=== PATIENT | male | born 1940 | race Two or more races ===

== ENCOUNTER 2017-04-05 10:49 | Inpatient (IN) | payer OTHER, MEDICAID ==
[~2017-04-05] VITALS: Ht 172.7 cm; Wt 74.8 kg
[~2017-04-05 10:49] MED LIST: ANTIVERT25 MG ORAL; FERROUS SULFAT325 MG ORAL; PLAVIX75 MG ORAL; PRILOSEC OTC20 MG ORAL; SIMVASTATIN20 MG ORAL
[2017-04-05] MEDS ORDERED: Tubing IV Cassette IV ONE (11:28)
[2017-04-05 11:30] VITALS: BP 122/65
[2017-04-05] MEDS ORDERED: SINEMET 25-1001 EAC1 ORAL (11:40)
[2017-04-05] MEDS ORDERED: METOPROLOL TART25 MG ORAL (11:40)
[2017-04-05 11:42] LABS: EOSINOPHILS % (AUTO) 10.9 % (0.0-3.0); LYMPHOCYTES % (AUTO) 14.1 % (20.0-45.0); MEAN CORPUSCULAR HEMOGLOBIN 33.3 PG (27.0-31.0); MEAN CORPUSCULAR HGB CONC 33.3 G/DL (32.0-36.0); MEAN CORPUSCULAR VOLUME 100 FL (80-99); MEAN PLATELET VOLUME 6.5 FL (6.5-10.1); NEUTROPHILS % (AUTO) 68.1 % (45.0-75.0); PLATELET COUNT 305 K/UL (150-450); RED BLOOD COUNT 3.47 M/UL (4.70-6.10); RED CELL DISTRIBUTION WIDTH 12.9 % (11.6-14.8); WHITE BLOOD COUNT 9.2 K/UL (4.8-10.8)
[2017-04-05 12:01] LABS: ALANINE AMINOTRANSFERASE 5 U/L (3-41); ALBUMIN/GLOBULIN RATIO 1.7 (1.0-2.7); ANION GAP 12 (5-15); ASPARTATE AMINO TRANSFERASE 24 U/L (5-40); CALCIUM 9.3 mg/dL (8.6-10.2); CARBON DIOXIDE 27 mEQ/L (20-30); CHLORIDE 100 mEQ/L (98-107); CREATININE 0.7 mg/dL (0.7-1.2); HEMOLYSIS 4; LIPASE 34 U/L (< 60); POTASSIUM 4.2 mEQ/L (3.4-4.9); SODIUM 139 mEQ/L (135-145); TOTAL PROTEIN 6.4 g/dL (6.6-8.7); TROPONIN I < 0.30 ng/mL (<=0.30)
[2017-04-05 13:06] LABS: APPEARANCE,URINE CLEAR; KETONES,URINE NEGATIVE (NEGATIVE); LEUKOCYTE ESTERASE ,URINE 1+ (NEGATIVE); NITRITE,URINE NEGATIVE (NEGATIVE); PH,URINE 6.5 (4.5-8.0); PROTEIN,URINE NEGATIVE (NEGATIVE); UROBILINOGEN,URINE NORMAL MG/DL (0.0-1.0)
[2017-04-05 13:07] LABS: BACTERIA,URINE OCCASIONAL /HPF; SQUAMOUS EPITHELIAL CELL,UR OCCASIONAL /LPF (NONE/OCC); WBC,URINE 0-2 /HPF (0 - 0)
--- NOTE | 2017-04-05 13:42 | Emergency Room Report ---
History of Present Illness General Chief Complaint: Pelvic Pain Source: Patient Present Illness HPI Patient is a 77-year-old male who is brought in by his neighbor after having increased pelvic pain. Patient had some fall. The patient been having increased difficulty with ambulation. Patient prior history of low back surgery. Patient had gradual onset of symptoms. He reported having increased difficulty with ambulation. Patient denied any fever. He had previously been able to move his left leg due to back issues. Allergies: Coded Allergies: No Known Allergies (Unverified , 07/18/16) Patient History Past Medical History: see triage record Reviewed Nursing Documentation: PMH: Agreed, PSxH: Agreed Nursing Documentation-PMH Hx Cardiac Problems: Yes Hx Hypertension: Yes Hx Asthma: Yes Hx COPD: Yes Hx Cancer: No Hx Gastrointestinal Problems: No Hx Neurological Problems: Yes - Parkinson's (?) Review of Systems All Other Systems: negative except mentioned in HPI Physical Exam Vital Signs Date Time Temp Pulse Resp B/P Pulse Ox O2 Delivery O2 Flow Rate FiO2 04/05/17 10:55 97.9 78 20 128/70 96 Room Air Sp02 EP Interpretation: reviewed, normal General Appearance: normal inspection, well appearing, no apparent distress, alert, GCS 15, non-toxic Head: atraumatic ENT: normal ENT inspection, hearing grossly normal, normal voice Neck: normal inspection, full range of motion, supple, no bony tend Respiratory: normal inspection, lungs clear, normal breath sounds, no respiratory distress, no retraction, no wheezing Cardiovascular #1: regular rate, rhythm, no edema Gastrointestinal: normal inspection, normal bowel sounds, non tender, soft, no guarding, no hernia Genitourinary: no CVA tenderness Musculoskeletal: back normal, normal range of motion, decreased range of motion Neurologic: normal inspection, alert, responsive, speech normal Psychiatric: normal inspection, judgement/insight normal, mood/affect normal Skin: normal inspection, normal color, no rash Medical Decision Making Diagnostic Impression: Primary Impression: Diverticulitis Additional Impression: Gallstones ER Course The patient presented for pelvic pain. Differential diagnoses included wasn't limited to pelvic fracture, arthritis, dislocation, diverticulitis, urinary retention among others.Because of complexity of patient's case laboratory testing and imaging studies were ordered. CT imaging of the abdomen pelvis read by radiology showed multiple left colonic diverticula with a short segment of the descending sigmoid junction with apparent mild neural thickening which may be mild diverticulitis the patient is also noted to have some gallstones and bilateral renal cysts . The patient noted have tenderness to his lower abdomen. The patient said CT findings are consistent with diverticulitis. Dr. Kaylyn Ly was contacted for inpatient management. The patient does not appear to have a surgical abdomen at this time. Labs Test 04/05/17 11:20 04/05/17 12:30 White Blood Count 9.2 K/UL (4.8-10.8) Red Blood Count 3.47 M/UL (4.70-6.10) Hemoglobin 11.6 G/DL (14.2-18.0) Hematocrit 34.7 % (42.0-52.0) Mean Corpuscular Volume 100 FL (80-99) Mean Corpuscular Hemoglobin 33.3 PG (27.0-31.0) Mean Corpuscular Hemoglobin Concent 33.3 G/DL (32.0-36.0) Red Cell Distribution Width 12.9 % (11.6-14.8) Platelet Count 305 K/UL (150-450) Mean Platelet Volume 6.5 FL (6.5-10.1) Neutrophils (%) (Auto) 68.1 % (45.0-75.0) Lymphocytes (%) (Auto) 14.1 % (20.0-45.0) Monocytes (%) (Auto) 6.0 % (1.0-10.0) Eosinophils (%) (Auto) 10.9 % (0.0-3.0) Basophils (%) (Auto) 1.0 % (0.0-2.0) Sodium Level 139 mEQ/L (135-145) Potassium Level 4.2 mEQ/L (3.4-4.9) Chloride Level 100 mEQ/L (98-107) Carbon Dioxide Level 27 mEQ/L (20-30) Anion Gap 12 (5-15) Blood Urea Nitrogen 16 mg/dL (7-23) Creatinine 0.7 mg/dL (0.7-1.2) Estimat Glomerular Filtration Rate mL/min (>60) Glucose Level 99 mg/dL (74-106) Calcium Level 9.3 mg/dL (8.6-10.2) Total Bilirubin 0.9 mg/dL (0.0-1.2) Aspartate Amino Transf (AST/SGOT) 24 U/L (5-40) Alanine Aminotransferase (ALT/SGPT) 5 U/L (3-41) Alkaline Phosphatase 83 U/L (40-129) Troponin I < 0.30 ng/mL (<=0.30) Total Protein 6.4 g/dL (6.6-8.7) Albumin 4.1 g/dL (3.5-5.2) Globulin 2.3 g/dL Albumin/Globulin Ratio 1.7 (1.0-2.7) Lipase 34 U/L (< 60) Urine Color Pale yellow Urine Appearance Clear Urine pH 6.5 (4.5-8.0) Urine Specific [place] 1.010 (1.005-1.035) Urine Protein Negative (NEGATIVE) Urine Glucose (UA) Negative (NEGATIVE) Urine Ketones Negative (NEGATIVE) Urine Occult Blood 2+ (NEGATIVE) Urine Nitrite Negative (NEGATIVE) Urine Bilirubin Negative (NEGATIVE) Urine Urobilinogen Normal MG/DL (0.0-1.0) Urine Leukocyte Esterase 1+ (NEGATIVE) Urine RBC 2-4 /HPF (0 - 0) Urine WBC 0-2 /HPF (0 - 0) Urine Squamous Epithelial Cells Occasional /LPF Urine Bacteria Occasional /HPF (NONE) Last Vital Signs Date Time Temp Pulse Resp B/P Pulse Ox O2 Delivery O2 Flow Rate FiO2 04/05/17 11:30 73 16 122/65 97 Room Air 04/05/17 10:55 97.9 Status: unchanged Disposition: ADMITTED INPATIENT Condition: Serious Referrals: NON PHYSICIAN (PCP) Satya Coleman April 05, 2017 13:42
[2017-04-05 14:00] VITALS: BP 116/71
[2017-04-05] MEDS ORDERED: Ampicillin/Sulbactam Sod 3 GM in NS 110 ML IVPB ONE (14:00)
[2017-04-05] MEDS ORDERED: Unasyn 3gm Inj ONE (14:15)
[2017-04-05] MEDS ORDERED: Tubing IV Secondary IV ONE (14:15)
[2017-04-05] MEDS ORDERED: NS 110 ML ONE (14:15)
[2017-04-05 16:00] VITALS: BP 110/58
[2017-04-05] MEDS ORDERED: Acetaminophen 500mg (ES) tab ORAL PRN (18:15)
--- NOTE | 2017-04-05 20:48 | Infectious Diseases Prog Note ---
Assessment/Plan Problems: (1) Diverticulitis Assessment & Plan: confirmed on CT bad[place], will start levaquin and flagyl empirically, recommend GI consult for further evaluation.will send stool for C diff (2) Pelvic pain Assessment & Plan: due to the above , continue pain management as per primary Subjective Allergies: Coded Allergies: No Known Allergies (Unverified , 07/18/16) Objective Vital Signs Last 24 Hour Vital Signs Date Time Temp Pulse Resp B/P Pulse Ox O2 Delivery O2 Flow Rate FiO2 04/05/17 16:00 96.7 61 17 110/58 97 Room Air 04/05/17 15:43 97.9 66 16 116/71 97 Room Air 04/05/17 14:00 66 16 116/71 97 Room Air 04/05/17 11:30 73 16 122/65 97 Room Air 04/05/17 10:55 97.9 78 20 128/70 96 Room Air Height (Feet): 5 Height (Inches): 8.00 Weight (Pounds): 165 Laboratory Tests Test 04/05/17 11:20 04/05/17 12:30 White Blood Count 9.2 K/UL (4.8-10.8) Red Blood Count 3.47 M/UL (4.70-6.10) L Hemoglobin 11.6 G/DL (14.2-18.0) L Hematocrit 34.7 % (42.0-52.0) L Mean Corpuscular Volume 100 FL (80-99) H Mean Corpuscular Hemoglobin 33.3 PG (27.0-31.0) H Mean Corpuscular Hemoglobin Concent 33.3 G/DL (32.0-36.0) Red Cell Distribution Width 12.9 % (11.6-14.8) Platelet Count 305 K/UL (150-450) Mean Platelet Volume 6.5 FL (6.5-10.1) Neutrophils (%) (Auto) 68.1 % (45.0-75.0) Lymphocytes (%) (Auto) 14.1 % (20.0-45.0) L Monocytes (%) (Auto) 6.0 % (1.0-10.0) Eosinophils (%) (Auto) 10.9 % (0.0-3.0) H Basophils (%) (Auto) 1.0 % (0.0-2.0) Sodium Level 139 mEQ/L (135-145) Potassium Level 4.2 mEQ/L (3.4-4.9) Chloride Level 100 mEQ/L (98-107) Carbon Dioxide Level 27 mEQ/L (20-30) Anion Gap 12 (5-15) Blood Urea Nitrogen 16 mg/dL (7-23) Creatinine 0.7 mg/dL (0.7-1.2) Estimat Glomerular Filtration Rate mL/min (>60) Glucose Level 99 mg/dL (74-106) Calcium Level 9.3 mg/dL (8.6-10.2) Total Bilirubin 0.9 mg/dL (0.0-1.2) Aspartate Amino Transf (AST/SGOT) 24 U/L (5-40) Alanine Aminotransferase (ALT/SGPT) 5 U/L (3-41) Alkaline Phosphatase 83 U/L (40-129) Troponin I < 0.30 ng/mL (<=0.30) Total Protein 6.4 g/dL (6.6-8.7) L Albumin 4.1 g/dL (3.5-5.2) Globulin 2.3 g/dL Albumin/Globulin Ratio 1.7 (1.0-2.7) Lipase 34 U/L (< 60) Urine Color Pale yellow Urine Appearance Clear Urine pH 6.5 (4.5-8.0) Urine Specific [place] 1.010 (1.005-1.035) Urine Protein Negative (NEGATIVE) Urine Glucose (UA) Negative (NEGATIVE) Urine Ketones Negative (NEGATIVE) Urine Occult Blood 2+ (NEGATIVE) H Urine Nitrite Negative (NEGATIVE) Urine Bilirubin Negative (NEGATIVE) Urine Urobilinogen Normal MG/DL (0.0-1.0) Urine Leukocyte Esterase 1+ (NEGATIVE) H Urine RBC 2-4 /HPF (0 - 0) H Urine WBC 0-2 /HPF (0 - 0) Urine Squamous Epithelial Cells Occasional /LPF Urine Bacteria Occasional /HPF (NONE) Current Medications Medications (Trade) Dose Ordered Sig/Esther Route PRN Reason Start Time Stop Time Status Last Admin Dose Admin Acetaminophen (Tylenol) 500 mg Q4H PRN ORAL Fever/Headache/Mild Pain 04/05/17 18:15 05/05/17 18:14 Sodium Chloride (Sodium Chloride 1000ml bag) 1,000 ml @ 100 mls/hr Q10H ONCE IV 04/05/17 11:15 04/05/17 21:14 04/05/17 12:14 Ana Ann M.D. April 05, 2017 20:48
[2017-04-05 21:14] VITALS: BP 114/63
[2017-04-05] MEDS: metroNIDAZOLE 500mg 100 ML IVPB SCH (21:49)
[2017-04-06] MEDS: metroNIDAZOLE 500mg 100 ML IVPB SCH ×3 (05:29→22:06)
[2017-04-06 08:00] VITALS: BP 116/59
--- NOTE | 2017-04-06 08:27 | Diagnostic Imaging Report ---
Clinical Indication: Lower abdominal pain Technique: No oral contrast utilized, per emergency room physician request IV administration nonionic contrast. Venous phase spiral acquisition obtained through the abdomen and pelvis. Multiplanar reconstructions were generated. Total dose length product 765 mGycm. CTDIvol(s) 13 mGy. Dose reduction achieved using automated exposure control Comparison: None Findings: There are numerous colonic diverticula. There is equivocal minimal mural thickening at the junction of the distal descending and sigmoid colon with equivocal minimal pericolonic fat stranding. No evidence of diverticulitis otherwise. The appendix is normal. No small bowel distention. No free or loculated intraperitoneal air or fluid is evident. Distal esophagus, stomach, duodenum are unremarkable. Gallbladder contains small gallstones. The liver demonstrates a few subcentimeter low-attenuation lesions which are too small to characterize. No biliary ductal dilatation. The pancreas is unremarkable. The spleen contains a subcentimeter low-attenuation lesion which is too small to characterize. The adrenals are unremarkable. The kidneys demonstrate multiple cysts bilaterally, as well as multiple subcentimeter low-attenuation lesions which are too small to characterize. No retroperitoneal or mesenteric mass or adenopathy. No pelvic mass or adenopathy. There is evidence of prior prostatectomy. There is evidence of lumbar spinal fusion surgery. There is mild lumbar scoliotic deformity and fairly extensive or upper lumbar degenerative changes. There is incompletely descended right testicle. A calcified granuloma is seen in the inferior left upper lobe of the lungs Impression: Diverticulosis. Doubt but cannot completely exclude early diverticulitis at the junction of the distal descending and the proximal sigmoid colon. No acute process otherwise Cholelithiasis Postsurgical changes, as described, including prior prostatectomy, lumbar spine fusion surgery. Multiple bilateral renal cysts. Multiple bilateral subcentimeter low-attenuation renal lesions which are too small to characterize, most likely benign simple cysts. No further followup necessary Low-attenuation liver lesions which are too small to characterize, most likely benign simple cysts or bile hamartomas. No further followup necessary Old granulomatous disease at the left lung base Incompletely descended right testicle This agrees with the preliminary interpretation provided overnight by Dr. Saez The CT scanner at [facility] is accredited by the [employer] and the scans are performed using protocols designed to limit radiation exposure to as low as reasonably achievable to attain images of sufficient resolution adequate for diagnostic evaluation.
[2017-04-06 12:00] VITALS: BP 111/58
--- NOTE | 2017-04-06 13:04 | GI Initial Consult Note ---
Natalie Meza N.P. 04/06/17 1304: History of Present Illness General Date patient seen: April 06, 2017 Time patient seen: 11:00 Reason for Hospitalization: Pelvic Pain Referring physician: LIVE PARIKH Reason for Consultation: DIVERTICULITIS Present Illness HPI Patient is a 77-year-old male who is brought in by his neighbor after having increased pelvic pain. Patient had some fall. The patient been having increased difficulty with ambulation. Patient prior history of low back surgery. Patient had gradual onset of symptoms. He reported having increased difficulty with ambulation. Patient denied any fever. He had previously been able to move his left leg due to back issues. GI CONSULT: HPI as noted. GI consulted for diverticulitis via APCT. NILE armenta, TRISTA. Pt seen on floor, awake & alert with sitter by bedside. Currently on CLD, c/o of mild lower abdominal pain at this time. He presents today with anemia and diverticulitis. Unknown history of endoscopic procedures. Procedure: CT Abdomen Pelvis w/Contrast Clinical Indication: Lower abdominal pain Impression: Diverticulosis. Doubt but cannot completely exclude early diverticulitis at the junction of the distal descending and the proximal sigmoid colon. No acute process otherwise Cholelithiasis Postsurgical changes, as described, including prior prostatectomy, lumbar spine fusion surgery. Multiple bilateral renal cysts. Multiple bilateral subcentimeter low-attenuation renal lesions which are too small to characterize, most likely benign simple cysts. No further followup necessary Low-attenuation liver lesions which are too small to characterize, most likely benign simple cysts or bile hamartomas. No further followup necessary Old granulomatous disease at the left lung base Incompletely descended right testicle Home Meds Active Scripts Meclizine Hcl* (ANTIVERT*) 25 Mg Tablet, 50 MG ORAL TID, #30 TAB Prov:Brenton Coker MD 07/19/16 Reported Medications Carbidopa/Levodopa 25-100 Mg* (SINEMET 25-100 MG TABLET*) 1 Each Tablet, 1 TAB ORAL DAILY, TAB 04/05/17 Metoprolol Tartrate* (METOPROLOL TARTRATE*) 25 Mg Tablet, 25 MG ORAL EVERY 12 HOURS, TAB 04/05/17 Simvastatin (ZOCOR) 20 Mg Tablet, ORAL BEDTIME, TAB 07/18/16 Omeprazole Magnesium (PRILOSEC OTC) 20 Mg Tablet.dr, 20 MG ORAL DAILY, TAB 07/18/16 Clopidogrel Bisulfate* (PLAVIX*) 75 Mg Tablet, 75 MG ORAL DAILY, TAB 07/18/16 Ferrous Sulfate* (FERROUS SULFATE*) 325 Mg Tablet, ORAL DAILY, #30 TAB 0 Refills 07/18/16 Med list reviewed/reconciled: Yes Allergies: Coded Allergies: No Known Allergies (Unverified , 07/18/16) Patient History History Provided By: Medical Record PMH Narrative Hx Cardiac Problems: Yes Hx Hypertension: Yes Hx Asthma: Yes Hx COPD: Yes Hx Cancer: No Hx Gastrointestinal Problems: No Hx Neurological Problems: Yes - Parkinson's (?) Review of Systems All Other Systems: negative except mentioned in HPI Physical Exam Vital Signs Date Time Temp Pulse Resp B/P Pulse Ox O2 Delivery O2 Flow Rate FiO2 04/05/17 10:55 97.9 78 20 128/70 96 Room Air Sp02 EP Interpretation: reviewed General Appearance: well appearing, no apparent distress, alert Head: normocephalic EENT: normal ENT inspection Neck: supple Respiratory: normal breath sounds, no respiratory distress Cardiovascular: normal rate Gastrointestinal: normal inspection, non tender, soft Rectal: deferred Neurologic: normal inspection, alert, responsive Psychiatric: normal inspection Skin: normal inspection, normal color, no rash, warm/dry Lymphatic: normal inspection, no adenopathy Current Medications Current Medications Medications (Trade) Dose Ordered Sig/Esther Route PRN Reason Start Time Stop Time Status Last Admin Dose Admin Acetaminophen 500 mg 500 mg Q4H PRN ORAL Fever/Headache/Mild Pain 04/05/17 18:15 05/05/17 18:14 04/05/17 21:49 Levofloxacin 100 ml @ 100 mls/hr Q24H IVPB 04/05/17 23:00 04/12/17 22:59 04/05/17 22:13 Metronidazole (Flagyl) 100 ml @ 100 mls/hr Q8HR IVPB 04/05/17 22:00 04/12/17 21:59 04/06/17 05:29 GI: Plan Problems: (1) Anemia (2) Diverticulitis (3) Pelvic pain Plan APCT reviewed >> Diverticulosis. Doubt but cannot completely exclude early diverticulitis at the junction of the distal descending and the proximal sigmoid colon. abx IV -> PO IVFs CLD, adv to soft low fiber diet as tolerated pain mgmt fu labs ST eval recommend outpatient colonoscopy x 2 months after discharge date. Discussed with Dr. Garner. Thank you for referring this patient, we will follow. MIROSLAVA GARNER 04/07/17 1151: History of Present Illness General Reason for Hospitalization: Pelvic Pain Present Illness Home Meds Active Scripts Meclizine Hcl* (ANTIVERT*) 25 Mg Tablet, 50 MG ORAL TID, #30 TAB Prov:Brenton Coker MD 07/19/16 Reported Medications Carbidopa/Levodopa 25-100 Mg* (SINEMET 25-100 MG TABLET*) 1 Each Tablet, 1 TAB ORAL DAILY, TAB 04/05/17 Metoprolol Tartrate* (METOPROLOL TARTRATE*) 25 Mg Tablet, 25 MG ORAL EVERY 12 HOURS, TAB 04/05/17 Simvastatin (ZOCOR) 20 Mg Tablet, ORAL BEDTIME, TAB 07/18/16 Omeprazole Magnesium (PRILOSEC OTC) 20 Mg Tablet.dr, 20 MG ORAL DAILY, TAB 07/18/16 Clopidogrel Bisulfate* (PLAVIX*) 75 Mg Tablet, 75 MG ORAL DAILY, TAB 07/18/16 Ferrous Sulfate* (FERROUS SULFATE*) 325 Mg Tablet, ORAL DAILY, #30 TAB 0 Refills 07/18/16 Allergies: Coded Allergies: No Known Allergies (Unverified , 07/18/16) GI: Plan Plan The patient was seen and examined at bedside and all new and available data was reviewed in the patients chart. I agree with the above findings, impression and plan. (Patient seen earlier today. Signature stamp does not reflect patient encounter time.). -Maricarmen Mclean MDh Arden N.PAnny April 06, 2017 13:04 MIROSLAVA GARNER April 07, 2017 11:51
--- NOTE | 2017-04-06 13:58 | Diagnostic Imaging Report ---
APPROVED REPORT CPT Code: 56988 Present Symptoms Comments: Pain RIGHT LEG: Venous imaging reveals a patent deep venous system. There is no evidence of thrombus within the femoral, popliteal or tibial segments. The greater saphenous vein is also within normal limits. Doppler indicates normal spontaneous flow within these segments. LEFTLEG: Venous imaging reveals recanalized chronic thrombus in the superficial femoral vein. Large collateral vein noted anterior to the superficial femoral artery. The remainder of the deep venous system is within normal limits. There is no evidence of thrombus in the common femoral, popliteal or calf veins. The greater saphenous vein is also within normal limits. Doppler indicates normal spontaneous flow within these segments. There is no evidence of acute deep vein thrombosis.
[2017-04-06 16:00] VITALS: BP 106/54
[2017-04-06] MEDS ORDERED: NS 550ML IV ONE (17:56)
[2017-04-06] MEDS ORDERED: NS 275ml ONE (17:56)
[2017-04-06] MEDS ORDERED: Tubing IV Blood Pump IV ONE (17:56)
[2017-04-06] MEDS ORDERED: Tubing IV Secondary IV ONE (17:56)
--- NOTE | 2017-04-06 18:16 | Consultation ---
DATE OF CONSULTATION: INFECTIOUS DISEASE CONSULTATION REQUESTING PHYSICIAN: Kaylyn Watt M.D. REASON FOR CONSULTATION: Acute diverticulitis, recommendation for antibiotics therapy. HISTORY OF PRESENT ILLNESS: The patient is a 77-year-old male with past medical history of Parkinson disease, COPD, hypertension, and cardiac disease, was brought in to [facility] [place] by his neighbor for progressive abdominal pain, mainly localized in the lower aspect of his abdomen, 9/10, on and off, has been increasing over the last two days, was not associated with any nausea or vomiting, but diarrhea. There was no blood in the stool. The pain is a dull, deep, ache. The patient not aware of anything makes it better or worse. The patient had a CT scan in the emergency room showed evidence of acute diverticulitis. He received intravenous antibiotics in the emergency room and I was consulted by the primary provider for antibiotics treatment and management. As of note, the patient is poor historian, cannot provide good history and history was mainly obtained from the medical record. PAST MEDICAL HISTORY: Significant for cardiac disease, hypertension, asthma, COPD and Parkinson disease. PAST SURGICAL HISTORY: He had low back surgery. MEDICATIONS: The patient received Unasyn in the emergency room. For the rest of his medications, please refer to MAR. SOCIAL HISTORY: The patient lives at home. No recent drugs, tobacco or alcohol. FAMILY HISTORY: Unable to obtain. LABORATORY AND DIAGNOSTIC DATA: White count of 9.2, hemoglobin of 11.6 and platelet count of 305,000. BUN of 16 and creatinine 0.7. AST of 24 and ALT of 5. Urinalysis showed +1 leukocyte esterase, WBC 0-2, and occasional bacteria. Imaging, CT scan of the abdomen and pelvis showed diverticulosis, cannot exclude an early diverticulitis at the junction of the distal descending and the proximal sigmoid colon. No acute process otherwise. PHYSICAL EXAMINATION: GENERAL: A elderly male, up in bed, awake, alert, and not in distress. VITAL SIGNS: Temperature 98.2 degrees, pulse 81, respirations 20, blood pressure 116/59, and pulse oximetry 96% on room air. HEENT: Normocephalic and atraumatic. Pupils are reactive to light. Pale sclera. Moist oral mucosa. No exudate. NECK: Supple. No lymphadenopathy. CARDIOVASCULAR: Regular rate and rhythm. No murmur. LUNGS: Clear bilaterally. No wheezing or rhonchi. ABDOMEN: Soft and mildly distended. Tender in the lower aspect. No rebound. No guarding. No organomegaly. EXTREMITIES: No edema or cyanosis. ASSESSMENT AND RECOMMENDATION: 1. Acute diverticulitis. We will start the patient empirically on Levaquin and Flagyl. We will send stool for Clostridium difficile. Recommend GI consultation for further evaluation and management. Unclear when he had a colonoscopy before if he had any. Other recommendations as per Gastrointestinal. 2. Abdominal pain and pelvic pain due to the above. Continue pain management as per the primary. Thank you. Ana Ann M.D. DR: JOSE JOB#: [id number] CC:
[2017-04-06 18:20] LABS: HEMOLYSIS 7; IRON 83 ug/dL (59-158); TOTAL IRON BINDING CAPACITY 294 ug/dL (250-400)
[2017-04-06 18:30] LABS: FERRITIN 51 ng/mL (10-230)
--- NOTE | 2017-04-06 18:32 | Consultation ---
Consult Note Consult Note DATE OF CONSULTATION: 04/06/17 HEMATOLOGY CONSULTATION REQUESTING PHYSICIAN: Kaylyn Watt M.D. REASON FOR CONSULTATION: Anemia, eosinophilia HISTORY OF PRESENT ILLNESS: The patient is a 77-year-old male with past medical history of Parkinson disease, COPD, hypertension, and cardiac disease, was brought in to [facility] by his neighbor for progressive abdominal pain, mainly localized in the lower aspect of his abdomen, 9/10, on and off, has been increasing over the last two days, was not associated with any nausea or vomiting, but diarrhea. There was no blood in the stool. The pain is a dull, deep, ache. The patient not aware of anything makes it better or worse. CT showed acute diverticulitis. He was noted to have eosinophilia of 11% as well as anemia that was a hgb in the 11 range and hematology consult requested PAST MEDICAL HISTORY: Significant for cardiac disease, hypertension, asthma, COPD and Parkinson disease. PAST SURGICAL HISTORY: He had low back surgery. Current Medications Medications (Trade) Dose Ordered Sig/Esther Route PRN Reason Start Time Stop Time Status Last Admin Dose Admin Acetaminophen 500 mg 500 mg Q4H PRN ORAL Fever/Headache/Mild Pain 04/05/17 18:15 05/05/17 18:14 04/05/17 21:49 Levofloxacin 100 ml @ 100 mls/hr Q24H IVPB 04/05/17 23:00 04/12/17 22:59 04/05/17 22:13 Metronidazole (Flagyl) 100 ml @ 100 mls/hr Q8HR IVPB 04/05/17 22:00 04/12/17 21:59 04/06/17 14:58 SOCIAL HISTORY: The patient lives at home. No recent drugs, tobacco or alcohol. FAMILY HISTORY: Unable to obtain. LABORATORY AND DIAGNOSTIC DATA: Laboratory Tests Test 04/06/17 17:50 White Blood Count Pending Red Blood Count Pending Hemoglobin Pending Hematocrit Pending Mean Corpuscular Volume Pending Mean Corpuscular Hemoglobin Pending Mean Corpuscular Hemoglobin Concent Pending Red Cell Distribution Width Pending Platelet Count Pending Mean Platelet Volume Pending Neutrophils (%) (Auto) Pending Lymphocytes (%) (Auto) Pending Monocytes (%) (Auto) Pending Eosinophils (%) (Auto) Pending Basophils (%) (Auto) Pending Reticulocyte Count Pending Fibrinogen Pending Iron Level Pending Unsaturated Iron Binding Pending Ferritin 51 ng/mL (10-230) Vitamin B12 Level Pending Folate Pending Imaging, CT scan of the abdomen and pelvis showed diverticulosis, cannot exclude an early diverticulitis at the junction of the distal descending and the proximal sigmoid colon. No acute process otherwise. PHYSICAL EXAMINATION: GENERAL: A elderly male, up in bed, awake, alert, and not in distress. VITAL SIGNS: reviewed and clinically stable NECK: Supple. No lymphadenopathy. CARDIOVASCULAR: Regular rate and rhythm. No murmur. LUNGS: Clear bilaterally. No wheezing or rhonchi. ABDOMEN: Soft and mildly distended. Tender in the lower aspect. No rebound. No guarding. No organomegaly. EXTREMITIES: No edema or cyanosis. Labs: reviewed ASSESSMENT AND RECS: # Anemia secondary to chronic disease # Macrocytosis - potentially 2/2 medications # Eosinophilia is elevated at 11% rule out ova and parasites from gi source # Decreased h/h rule out gi bleed # Acute diverticulitis. on abx and consider gi eval with scope in approx 2 months as per GI recs # Abdominal pain and pelvic pain due to the above. Continue pain management as per the primary. # GREATLY Appreciate Consultation Yong Cortez April 06, 2017 18:32
[2017-04-06 18:36] LABS: BASOPHILS % (AUTO) 1.1 % (0.0-2.0); EOSINOPHILS % (AUTO) 10.7 % (0.0-3.0); LYMPHOCYTES % (AUTO) 15.1 % (20.0-45.0); MEAN CORPUSCULAR HEMOGLOBIN 35.3 PG (27.0-31.0); MEAN CORPUSCULAR HGB CONC 34.3 G/DL (32.0-36.0); MEAN CORPUSCULAR VOLUME 103 FL (80-99); MEAN PLATELET VOLUME 6.2 FL (6.5-10.1); MONOCYTES % (AUTO) 6.5 % (1.0-10.0); NEUTROPHILS % (AUTO) 66.7 % (45.0-75.0); PLATELET COUNT 278 K/UL (150-450); RED BLOOD COUNT 3.57 M/UL (4.70-6.10); WHITE BLOOD COUNT 6.7 K/UL (4.8-10.8)
[2017-04-06 19:41] LABS: BASOPHILS % (MANUAL) 1 % (0-2); EOSINOPHILS % (MANUAL) 10 % (0-3); LYMPHOCYTES % (MANUAL) 20 % (20-45); NEUTROPHILS % (MANUAL) 65 % (45-75); TOTAL CELLS COUNTED 100
[2017-04-06 19:42] LABS: BAND NEUTROPHILS % (MANUAL) 0 % (0-8); PLATELET ESTIMATE ADEQUATE; PLATELET MORPHOLOGY NORMAL
[2017-04-06 19:51] LABS: PATH BLOOD SMEAR/OMC SENT TO PATHOLOGIST
[2017-04-06 20:00] VITALS: BP 126/71
--- NOTE | 2017-04-06 20:30 | History and Physical Report ---
DATE OF ADMISSION: 04/05/2017 CHIEF COMPLAINT/HISTORY OF PRESENT ILLNESS: The patient is being admitted for abdominal pain that has been going on for a couple of days. Has history of back surgery. CT showed diverticula, multiple of them with mild diverticulitis as well. The patient has also had a prostate surgery in the past. The patient also had vomiting. Denies rectal bleeding. Denies constipation. Denies fever or chills. PAST MEDICAL HISTORY: Parkinson, iron deficiency anemia, history of vertigo, hypertension, GERD, hyperlipidemia, and BPH. PAST SURGICAL HISTORY: Prostate surgery, lung surgery, and back surgery. MEDICATIONS: Sinemet, Plavix, ferrous sulfate, metoprolol, omeprazole, and simvastatin. ALLERGIES: No known allergies. SOCIAL HISTORY: History of smoking. No history of drug or alcohol abuse. FAMILY HISTORY: Noncontributory. REVIEW OF SYSTEMS: HEENT: Denies headache. Respiratory: Denies shortness of breath. Denies cough. Cardiovascular: Denies chest pain. Denies palpitation. Gastrointestinal: Reports abdominal pain and vomiting. No rectal bleeding. Last bowel movement was yesterday. Extremities: He does have pain, which is chronic, mostly in the back. Central Nervous System: Denies change in vision or speech pattern. PHYSICAL EXAMINATION: VITAL SIGNS: Temperature is 97.9 degrees, pulse was 66, and blood pressure 116/71. HEENT: PERRLA. NECK: Supple. No lymphadenopathy. CHEST: Clear to auscultation. GASTROINTESTINAL: The patient has suprapubic tenderness. No rebound. No guarding. Positive bowel sounds. EXTREMITIES: No edema. Reflexes are equal on both sides. Moves all four extremities. NEUROLOGIC: Sensory is intact to light touch. LABORATORY AND DIAGNOSTIC DATA: WBC of 9.2, hemoglobin 7.6, and platelet of 305,000. Sodium 139, potassium 4.3, BUN of 16, creatinine 0.7 and glucose of 99. ASSESSMENT AND PLAN: 1. Diverticulitis. 2. Abdominal pain. I have consulted Dr. Hughes, Dr. Ann, and Dr. Willis for the treatment of the diverticulitis and abdominal pain and for the treatment of dehydration. Ali Hadadz, M.D. DR: FAM JOB#: [id number] CC:
[2017-04-07] VITALS: BP 113/55
[2017-04-07 04:00] VITALS: BP 116/68
[2017-04-07] MEDS: metroNIDAZOLE 500mg 100 ML IVPB SCH ×3 (06:02→22:58)
[2017-04-07 08:22] LABS: BASOPHILS % (AUTO) 1.2 % (0.0-2.0); EOSINOPHILS % (AUTO) 14.4 % (0.0-3.0); LYMPHOCYTES % (AUTO) 15.9 % (20.0-45.0); MEAN CORPUSCULAR HEMOGLOBIN 33.2 PG (27.0-31.0); MEAN CORPUSCULAR HGB CONC 33.3 G/DL (32.0-36.0); MEAN CORPUSCULAR VOLUME 100 FL (80-99); MEAN PLATELET VOLUME 6.7 FL (6.5-10.1); MONOCYTES % (AUTO) 7.2 % (1.0-10.0); NEUTROPHILS % (AUTO) 61.3 % (45.0-75.0); PLATELET COUNT 281 K/UL (150-450); RED BLOOD COUNT 3.51 M/UL (4.70-6.10); RED CELL DISTRIBUTION WIDTH 12.8 % (11.6-14.8)
[2017-04-07 08:40] LABS: ANION GAP 12 (5-15); CALCIUM 8.5 mg/dL (8.6-10.2); CARBON DIOXIDE 26 mEQ/L (20-30); CHLORIDE 104 mEQ/L (98-107); CREATININE 0.7 mg/dL (0.7-1.2); HEMOLYSIS 2; POTASSIUM 3.8 mEQ/L (3.4-4.9); SODIUM 142 mEQ/L (135-145)
[2017-04-07 08:45] VITALS: BP 125/58
[2017-04-07 11:45] VITALS: BP 106/59
--- NOTE | 2017-04-07 13:16 | General Progress Note ---
Assessment/Plan Problem List: (1) Diverticulitis ICD Codes: K57.92 - Diverticulitis of intestine, part unspecified, without perforation or abscess without bleeding SNOMED: 018472190 (2) Anemia ICD Codes: D64.9 - Anemia, unspecified SNOMED: 402566141 (3) Pelvic pain ICD Codes: R10.2 - Pelvic and perineal pain SNOMED: 45022757 Status: progressing Assessment/Plan afebrile vitals stable abdominal pain is improving reviewed chart and labs abx per id Subjective ROS Limited/Unobtainable: Yes Constitutional: Reports: no symptoms HEENT: Reports: no symptoms Allergies: Coded Allergies: No Known Allergies (Unverified , 07/18/16) Objective Last 24 Hour Vital Signs Date Time Temp Pulse Resp B/P Pulse Ox O2 Delivery O2 Flow Rate FiO2 04/07/17 11:45 98.2 74 20 106/59 95 Room Air 04/07/17 08:45 98.2 84 19 125/58 95 Room Air 04/07/17 04:00 98.1 80 18 116/68 93 Room Air 04/07/17 00:00 98.2 75 18 113/55 95 Room Air 04/06/17 20:00 97.5 82 18 126/71 97 Room Air 04/06/17 16:00 98.1 74 20 106/54 100 Room Air Intake and Output 04/06/17 04/07/17 19:00 07:00 Intake Total 960 ml 60 ml Output Total 600 ml Balance 960 ml -540 ml Intake Oral 960 ml 60 ml Output Urine Total 600 ml # Voids 2 1 # Bowel Movements 2 1 Laboratory Tests 04/06/17 17:50: White Blood Count 6.7, Red Blood Count 3.57L, Hemoglobin 12.6L, Hematocrit 36.7L , Mean Corpuscular Volume 103H, Mean Corpuscular Hemoglobin 35.3H, Mean Corpuscular Hemoglobin Concent 34.3, Red Cell Distribution Width 13.0, Platelet Count 278, Mean Platelet Volume 6.2L, Neutrophils (%) (Auto) 66.7, Lymphocytes ( %) (Auto) 15.1L, Monocytes (%) (Auto) 6.5, Eosinophils (%) (Auto) 10.7H, Basophils (%) (Auto) 1.1, Differential Total Cells Counted 100, Neutrophils % ( Manual) 65, Lymphocytes % (Manual) 20, Monocytes % (Manual) 4, Eosinophils % ( Manual) 10H, Basophils % (Manual) 1, Band Neutrophils 0, Platelet Estimate Adequate, Platelet Morphology Normal, Red Blood Cell Morphology Normal, Reticulocyte Count 1.4, Fibrinogen 357, Iron Level 83, Total Iron Binding Capacity 294, Percent Iron Saturation 28, Unsaturated Iron Binding 211, Ferritin 51, Vitamin B12 Level 696, Folate [Pending] 04/07/17 07:00: White Blood Count 6.0, Red Blood Count 3.51L, Hemoglobin 11.7L, Hematocrit 35.0L , Mean Corpuscular Volume 100H, Mean Corpuscular Hemoglobin 33.2H, Mean Corpuscular Hemoglobin Concent 33.3, Red Cell Distribution Width 12.8, Platelet Count 281, Mean Platelet Volume 6.7, Neutrophils (%) (Auto) 61.3, Lymphocytes (% ) (Auto) 15.9L, Monocytes (%) (Auto) 7.2, Eosinophils (%) (Auto) 14.4H, Basophils (%) (Auto) 1.2, Sodium Level 142, Potassium Level 3.8, Chloride Level 104, Carbon Dioxide Level 26, Anion Gap 12, Blood Urea Nitrogen 9, Creatinine 0.7, Estimat Glomerular Filtration Rate , Glucose Level 94, Calcium Level 8.5L Height (Feet): 5 Height (Inches): 8.00 Weight (Pounds): 165 EENT: PERRL/EOMI Neck: supple Cardiovascular: normal rate Respiratory/Chest: lungs clear Abdomen: soft Kaylyn Watt MD April 07, 2017 13:16
--- NOTE | 2017-04-07 13:26 | GI Progress Note ---
Assessment/Plan Problems: (1) Diverticulitis ICD Codes: K57.92 - Diverticulitis of intestine, part unspecified, without perforation or abscess without bleeding SNOMED: 098182331 (2) Pelvic pain ICD Codes: R10.2 - Pelvic and perineal pain SNOMED: 56364177 (3) Anemia ICD Codes: D64.9 - Anemia, unspecified SNOMED: 589321956 Status: stable, progressing Status Narrative Discussed with Dr. Willis. Assessment/Plan APCT reviewed >> Diverticulosis. Doubt but cannot completely exclude early diverticulitis at the junction of the distal descending and the proximal sigmoid colon. ST eval noted >> mech soft chopped with thickener. ok for DC per GI standpoint if tolerates lunch >> recommend outpatient colonoscopy x 2 months after discharge date. abx IV -> PO soft diet, tolerating pain mgmt fu labs Subjective Gastrointestinal/Abdominal: Reports: no symptoms Objective Last 24 Hour Vital Signs Date Time Temp Pulse Resp B/P Pulse Ox O2 Delivery O2 Flow Rate FiO2 04/07/17 11:45 98.2 74 20 106/59 95 Room Air 04/07/17 08:45 98.2 84 19 125/58 95 Room Air 04/07/17 04:00 98.1 80 18 116/68 93 Room Air 04/07/17 00:00 98.2 75 18 113/55 95 Room Air 04/06/17 20:00 97.5 82 18 126/71 97 Room Air 04/06/17 16:00 98.1 74 20 106/54 100 Room Air Intake and Output 04/06/17 04/07/17 19:00 07:00 Intake Total 960 ml 60 ml Output Total 600 ml Balance 960 ml -540 ml Intake Oral 960 ml 60 ml Output Urine Total 600 ml # Voids 2 1 # Bowel Movements 2 1 Laboratory Tests Test 04/06/17 17:50 04/07/17 07:00 White Blood Count 6.7 K/UL (4.8-10.8) 6.0 K/UL (4.8-10.8) Red Blood Count 3.57 M/UL (4.70-6.10) L 3.51 M/UL (4.70-6.10) L Hemoglobin 12.6 G/DL (14.2-18.0) L 11.7 G/DL (14.2-18.0) L Hematocrit 36.7 % (42.0-52.0) L 35.0 % (42.0-52.0) L Mean Corpuscular Volume 103 FL (80-99) H 100 FL (80-99) H Mean Corpuscular Hemoglobin 35.3 PG (27.0-31.0) H 33.2 PG (27.0-31.0) H Mean Corpuscular Hemoglobin Concent 34.3 G/DL (32.0-36.0) 33.3 G/DL (32.0-36.0) Red Cell Distribution Width 13.0 % (11.6-14.8) 12.8 % (11.6-14.8) Platelet Count 278 K/UL (150-450) 281 K/UL (150-450) Mean Platelet Volume 6.2 FL (6.5-10.1) L 6.7 FL (6.5-10.1) Neutrophils (%) (Auto) 66.7 % (45.0-75.0) 61.3 % (45.0-75.0) Lymphocytes (%) (Auto) 15.1 % (20.0-45.0) L 15.9 % (20.0-45.0) L Monocytes (%) (Auto) 6.5 % (1.0-10.0) 7.2 % (1.0-10.0) Eosinophils (%) (Auto) 10.7 % (0.0-3.0) H 14.4 % (0.0-3.0) H Basophils (%) (Auto) 1.1 % (0.0-2.0) 1.2 % (0.0-2.0) Differential Total Cells Counted 100 Neutrophils % (Manual) 65 % (45-75) Lymphocytes % (Manual) 20 % (20-45) Monocytes % (Manual) 4 % (1-10) Eosinophils % (Manual) 10 % (0-3) H Basophils % (Manual) 1 % (0-2) Band Neutrophils 0 % (0-8) Platelet Estimate Adequate Platelet Morphology Normal Red Blood Cell Morphology Normal Reticulocyte Count 1.4 % (0.0-2.0) Fibrinogen 357 mg/dL (200-400) Iron Level 83 ug/dL (59-158) Total Iron Binding Capacity 294 ug/dL (250-400) Percent Iron Saturation 28 % (15-50) Unsaturated Iron Binding 211 ug/dL (112-346) Ferritin 51 ng/mL (10-230) Vitamin B12 Level 696 pg/mL (211-946) Folate Pending Sodium Level 142 mEQ/L (135-145) Potassium Level 3.8 mEQ/L (3.4-4.9) Chloride Level 104 mEQ/L (98-107) Carbon Dioxide Level 26 mEQ/L (20-30) Anion Gap 12 (5-15) Blood Urea Nitrogen 9 mg/dL (7-23) Creatinine 0.7 mg/dL (0.7-1.2) Estimat Glomerular Filtration Rate mL/min (>60) Glucose Level 94 mg/dL (74-106) Calcium Level 8.5 mg/dL (8.6-10.2) L Height (Feet): 5 Height (Inches): 8.00 Weight (Pounds): 165 General Appearance: no apparent distress, alert Cardiovascular: normal rate Respiratory/Chest: normal breath sounds Abdominal Exam: normal bowel sounds, non tender Extremities: normal range of motion Natalie Meza N.P. April 07, 2017 13:26
--- NOTE | 2017-04-07 15:04 | Infectious Diseases Prog Note ---
Assessment/Plan Problems: (1) Diverticulitis Assessment & Plan: improving , on levaquin and flagyl empirically, follow up with GI for further evaluation. stool for C diff is pending (2) Pelvic pain Assessment & Plan: improving, due to the above , continue pain management as per primary Subjective Constitutional: Reports: no symptoms HEENT: Reports: no symptoms Respiratory: Reports: no symptoms Cardiovascular: Reports: no symptoms Gastrointestinal/Abdominal: Reports: diarrhea Genitourinary: Reports: no symptoms Neurologic: Reports: no symptoms Psychiatric: Reports: no symptoms Skin: Reports: no symptoms Allergies: Coded Allergies: No Known Allergies (Unverified , 07/18/16) Objective Vital Signs Last 24 Hour Vital Signs Date Time Temp Pulse Resp B/P Pulse Ox O2 Delivery O2 Flow Rate FiO2 04/07/17 11:45 98.2 74 20 106/59 95 Room Air 04/07/17 08:45 98.2 84 19 125/58 95 Room Air 04/07/17 04:00 98.1 80 18 116/68 93 Room Air 04/07/17 00:00 98.2 75 18 113/55 95 Room Air 04/06/17 20:00 97.5 82 18 126/71 97 Room Air 04/06/17 16:00 98.1 74 20 106/54 100 Room Air Height (Feet): 5 Height (Inches): 8.00 Weight (Pounds): 165 General Appearance: WD/WN, no acute distress HEENT: normocephalic, atraumatic, anicteric, mucous membranes moist Respiratory/Chest: chest wall non-tender, lungs clear, normal breath sounds, no respiratory distress, no accessory muscle use Cardiovascular: normal peripheral pulses, normal rate, regular rhythm, no gallop/murmur, no JVD Abdomen: normal bowel sounds, soft, non tender, no organomegaly, non distended , no mass Extremities: no cyanosis, no clubbing Skin: no rash, no lesions Laboratory Tests Test 04/06/17 17:50 04/07/17 07:00 White Blood Count 6.7 K/UL (4.8-10.8) 6.0 K/UL (4.8-10.8) Red Blood Count 3.57 M/UL (4.70-6.10) L 3.51 M/UL (4.70-6.10) L Hemoglobin 12.6 G/DL (14.2-18.0) L 11.7 G/DL (14.2-18.0) L Hematocrit 36.7 % (42.0-52.0) L 35.0 % (42.0-52.0) L Mean Corpuscular Volume 103 FL (80-99) H 100 FL (80-99) H Mean Corpuscular Hemoglobin 35.3 PG (27.0-31.0) H 33.2 PG (27.0-31.0) H Mean Corpuscular Hemoglobin Concent 34.3 G/DL (32.0-36.0) 33.3 G/DL (32.0-36.0) Red Cell Distribution Width 13.0 % (11.6-14.8) 12.8 % (11.6-14.8) Platelet Count 278 K/UL (150-450) 281 K/UL (150-450) Mean Platelet Volume 6.2 FL (6.5-10.1) L 6.7 FL (6.5-10.1) Neutrophils (%) (Auto) 66.7 % (45.0-75.0) 61.3 % (45.0-75.0) Lymphocytes (%) (Auto) 15.1 % (20.0-45.0) L 15.9 % (20.0-45.0) L Monocytes (%) (Auto) 6.5 % (1.0-10.0) 7.2 % (1.0-10.0) Eosinophils (%) (Auto) 10.7 % (0.0-3.0) H 14.4 % (0.0-3.0) H Basophils (%) (Auto) 1.1 % (0.0-2.0) 1.2 % (0.0-2.0) Differential Total Cells Counted 100 Neutrophils % (Manual) 65 % (45-75) Lymphocytes % (Manual) 20 % (20-45) Monocytes % (Manual) 4 % (1-10) Eosinophils % (Manual) 10 % (0-3) H Basophils % (Manual) 1 % (0-2) Band Neutrophils 0 % (0-8) Platelet Estimate Adequate Platelet Morphology Normal Red Blood Cell Morphology Normal Reticulocyte Count 1.4 % (0.0-2.0) Fibrinogen 357 mg/dL (200-400) Iron Level 83 ug/dL (59-158) Total Iron Binding Capacity 294 ug/dL (250-400) Percent Iron Saturation 28 % (15-50) Unsaturated Iron Binding 211 ug/dL (112-346) Ferritin 51 ng/mL (10-230) Vitamin B12 Level 696 pg/mL (211-946) Folate 18.9 ng/mL (>3.0) Sodium Level 142 mEQ/L (135-145) Potassium Level 3.8 mEQ/L (3.4-4.9) Chloride Level 104 mEQ/L (98-107) Carbon Dioxide Level 26 mEQ/L (20-30) Anion Gap 12 (5-15) Blood Urea Nitrogen 9 mg/dL (7-23) Creatinine 0.7 mg/dL (0.7-1.2) Estimat Glomerular Filtration Rate mL/min (>60) Glucose Level 94 mg/dL (74-106) Calcium Level 8.5 mg/dL (8.6-10.2) L Current Medications Medications (Trade) Dose Ordered Sig/Esther Route PRN Reason Start Time Stop Time Status Last Admin Dose Admin Acetaminophen 500 mg 500 mg Q4H PRN ORAL Fever/Headache/Mild Pain 04/05/17 18:15 05/05/17 18:14 04/05/17 21:49 Levofloxacin 100 ml @ 100 mls/hr Q24H IVPB 04/05/17 23:00 04/12/17 22:59 04/06/17 22:04 Metronidazole (Flagyl) 100 ml @ 100 mls/hr Q8HR IVPB 04/05/17 22:00 04/12/17 21:59 04/07/17 14:05 Ana Ann M.D. April 07, 2017 15:04
[2017-04-07 16:00] VITALS: BP 118/85
--- NOTE | 2017-04-07 16:49 | General Progress Note ---
Assessment/Plan Assessment/Plan ASSESSMENT AND RECS: # Anemia secondary to chronic disease, anemia workup reveals no evidence of clots # Macrocytosis - potentially 2/2 medications # Eosinophilia is elevated at 11% rule out ova and parasites from gi source, results are pending # Decreased h/h rule out gi bleed # Acute diverticulitis. on abx and consider gi eval with scope in approx 2 months as per GI recs # Abdominal pain and pelvic pain due to the above. Continue pain management as per the primary # GREATLY Appreciate Consultation Subjective Constitutional: Reports: no symptoms HEENT: Reports: no symptoms Cardiovascular: Reports: no symptoms Respiratory: Reports: no symptoms Gastrointestinal/Abdominal: Reports: no symptoms Genitourinary: Reports: no symptoms Neurologic/Psychiatric: Reports: no symptoms Endocrine: Reports: no symptoms Hematologic/Lymphatic: Reports: anemia Allergies: Coded Allergies: No Known Allergies (Unverified , 07/18/16) Subjective no events, no reports or hematochezia Objective Last 24 Hour Vital Signs Date Time Temp Pulse Resp B/P Pulse Ox O2 Delivery O2 Flow Rate FiO2 04/07/17 16:00 98.2 77 18 118/85 97 Room Air 04/07/17 11:45 98.2 74 20 106/59 95 Room Air 04/07/17 08:45 98.2 84 19 125/58 95 Room Air 04/07/17 04:00 98.1 80 18 116/68 93 Room Air 04/07/17 00:00 98.2 75 18 113/55 95 Room Air 04/06/17 20:00 97.5 82 18 126/71 97 Room Air Intake and Output 04/06/17 04/07/17 19:00 07:00 Intake Total 960 ml 60 ml Output Total 600 ml Balance 960 ml -540 ml Intake Oral 960 ml 60 ml Output Urine Total 600 ml # Voids 2 1 # Bowel Movements 2 1 Laboratory Tests 04/06/17 17:50: White Blood Count 6.7, Red Blood Count 3.57L, Hemoglobin 12.6L, Hematocrit 36.7L , Mean Corpuscular Volume 103H, Mean Corpuscular Hemoglobin 35.3H, Mean Corpuscular Hemoglobin Concent 34.3, Red Cell Distribution Width 13.0, Platelet Count 278, Mean Platelet Volume 6.2L, Neutrophils (%) (Auto) 66.7, Lymphocytes ( %) (Auto) 15.1L, Monocytes (%) (Auto) 6.5, Eosinophils (%) (Auto) 10.7H, Basophils (%) (Auto) 1.1, Differential Total Cells Counted 100, Neutrophils % ( Manual) 65, Lymphocytes % (Manual) 20, Monocytes % (Manual) 4, Eosinophils % ( Manual) 10H, Basophils % (Manual) 1, Band Neutrophils 0, Platelet Estimate Adequate, Platelet Morphology Normal, Red Blood Cell Morphology Normal, Reticulocyte Count 1.4, Fibrinogen 357, Iron Level 83, Total Iron Binding Capacity 294, Percent Iron Saturation 28, Unsaturated Iron Binding 211, Ferritin 51, Vitamin B12 Level 696, Folate 18.9 04/07/17 07:00: White Blood Count 6.0, Red Blood Count 3.51L, Hemoglobin 11.7L, Hematocrit 35.0L , Mean Corpuscular Volume 100H, Mean Corpuscular Hemoglobin 33.2H, Mean Corpuscular Hemoglobin Concent 33.3, Red Cell Distribution Width 12.8, Platelet Count 281, Mean Platelet Volume 6.7, Neutrophils (%) (Auto) 61.3, Lymphocytes (% ) (Auto) 15.9L, Monocytes (%) (Auto) 7.2, Eosinophils (%) (Auto) 14.4H, Basophils (%) (Auto) 1.2, Sodium Level 142, Potassium Level 3.8, Chloride Level 104, Carbon Dioxide Level 26, Anion Gap 12, Blood Urea Nitrogen 9, Creatinine 0.7, Estimat Glomerular Filtration Rate , Glucose Level 94, Calcium Level 8.5L Height (Feet): 5 Height (Inches): 8.00 Weight (Pounds): 165 General Appearance: no apparent distress EENT: TMs normal Neck: non-tender Cardiovascular: normal rate Respiratory/Chest: normal breath sounds Genitourinary/Rectal: heme negative stool Extremities: non-tender Edema: 1+ Leg (L), 1+ Leg (R) Edema: mild edema Neurologic: alert Skin: warm/dry Yong Cortez April 07, 2017 16:49
--- NOTE | 2017-04-07 19:53 | Cardiology Report ---
APPROVED REPORT EKG Measurement Heart [id number] Normal sinus rhythm Low voltage QRS Septal infarct, age undetermined Abnormal ECG
[2017-04-07 20:54] VITALS: BP 120/62
[2017-04-08 00:01] VITALS: BP 118/70
[2017-04-08] MEDS: metroNIDAZOLE 500mg 100 ML IVPB SCH ×2 (05:26→14:21)
[2017-04-08 07:06] LABS: BASOPHILS % (AUTO) 1.3 % (0.0-2.0); EOSINOPHILS % (AUTO) 12.7 % (0.0-3.0); LYMPHOCYTES % (AUTO) 15.9 % (20.0-45.0); MEAN CORPUSCULAR HEMOGLOBIN 33.3 PG (27.0-31.0); MEAN CORPUSCULAR HGB CONC 33.5 G/DL (32.0-36.0); MEAN CORPUSCULAR VOLUME 100 FL (80-99); MEAN PLATELET VOLUME 6.7 FL (6.5-10.1); MONOCYTES % (AUTO) 6.7 % (1.0-10.0); NEUTROPHILS % (AUTO) 63.5 % (45.0-75.0); PLATELET COUNT 290 K/UL (150-450); RED BLOOD COUNT 3.41 M/UL (4.70-6.10); RED CELL DISTRIBUTION WIDTH 12.5 % (11.6-14.8); WHITE BLOOD COUNT 6.7 K/UL (4.8-10.8)
[2017-04-08 07:23] LABS: ANION GAP 12 (5-15); CALCIUM 8.6 mg/dL (8.6-10.2); CARBON DIOXIDE 25 mEQ/L (20-30); CHLORIDE 103 mEQ/L (98-107); CREATININE 0.7 mg/dL (0.7-1.2); HEMOLYSIS 4; SODIUM 140 mEQ/L (135-145)
[2017-04-08 08:00] VITALS: BP 118/72
--- NOTE | 2017-04-08 11:20 | GI Progress Note ---
Assessment/Plan Problems: (1) Diverticulitis ICD Codes: K57.92 - Diverticulitis of intestine, part unspecified, without perforation or abscess without bleeding SNOMED: 216234740 (2) Pelvic pain ICD Codes: R10.2 - Pelvic and perineal pain SNOMED: 74252684 (3) Anemia ICD Codes: D64.9 - Anemia, unspecified SNOMED: 659910235 Status: stable Status Narrative Discussed with Dr. Willis. Assessment/Plan APCT reviewed >> Diverticulosis. Doubt but cannot completely exclude early diverticulitis at the junction of the distal descending and the proximal sigmoid colon. ST eval noted >> mech soft chopped with thickener. ok for DC per GI standpoint >> requires outpatient colonoscopy x 2 months after discharge date. abx IV -> PO soft diet, tolerating pain mgmt fu labs Subjective Gastrointestinal/Abdominal: Reports: no symptoms Objective Last 24 Hour Vital Signs Date Time Temp Pulse Resp B/P Pulse Ox O2 Delivery O2 Flow Rate FiO2 04/08/17 08:00 97.9 98 20 118/72 95 Room Air 04/08/17 00:01 97.5 73 18 118/70 97 Room Air 04/07/17 20:54 97.5 76 18 120/62 97 04/07/17 16:00 98.2 77 18 118/85 97 Room Air 04/07/17 11:45 98.2 74 20 106/59 95 Room Air Intake and Output 04/07/17 04/08/17 19:00 07:00 Intake Total 960 ml 236 ml Output Total 860 ml 500 ml Balance 100 ml -264 ml Intake Oral 960 ml 236 ml Output Urine Total 860 ml 500 ml # Voids 3 2 # Bowel Movements 2 Laboratory Tests Test 04/08/17 01:50 04/08/17 05:00 Stool Occult Blood Negative (NEGATIVE) White Blood Count 6.7 K/UL (4.8-10.8) Red Blood Count 3.41 M/UL (4.70-6.10) L Hemoglobin 11.4 G/DL (14.2-18.0) L Hematocrit 33.9 % (42.0-52.0) L Mean Corpuscular Volume 100 FL (80-99) H Mean Corpuscular Hemoglobin 33.3 PG (27.0-31.0) H Mean Corpuscular Hemoglobin Concent 33.5 G/DL (32.0-36.0) Red Cell Distribution Width 12.5 % (11.6-14.8) Platelet Count 290 K/UL (150-450) Mean Platelet Volume 6.7 FL (6.5-10.1) Neutrophils (%) (Auto) 63.5 % (45.0-75.0) Lymphocytes (%) (Auto) 15.9 % (20.0-45.0) L Monocytes (%) (Auto) 6.7 % (1.0-10.0) Eosinophils (%) (Auto) 12.7 % (0.0-3.0) H Basophils (%) (Auto) 1.3 % (0.0-2.0) Sodium Level 140 mEQ/L (135-145) Potassium Level 4.0 mEQ/L (3.4-4.9) Chloride Level 103 mEQ/L (98-107) Carbon Dioxide Level 25 mEQ/L (20-30) Anion Gap 12 (5-15) Blood Urea Nitrogen 9 mg/dL (7-23) Creatinine 0.7 mg/dL (0.7-1.2) Estimat Glomerular Filtration Rate mL/min (>60) Glucose Level 101 mg/dL (74-106) Calcium Level 8.6 mg/dL (8.6-10.2) Height (Feet): 5 Height (Inches): 8.00 Weight (Pounds): 165 General Appearance: no apparent distress, alert Cardiovascular: normal rate Respiratory/Chest: normal breath sounds, no respiratory distress Abdominal Exam: normal bowel sounds, non tender, soft Extremities: normal range of motion Natalie Meza N.P. April 08, 2017 11:20
--- NOTE | 2017-04-08 11:49 | General Progress Note ---
Assessment/Plan Problem List: (1) Diverticulitis ICD Codes: K57.92 - Diverticulitis of intestine, part unspecified, without perforation or abscess without bleeding SNOMED: 115524928 (2) Anemia ICD Codes: D64.9 - Anemia, unspecified SNOMED: 416324327 (3) Pelvic pain ICD Codes: R10.2 - Pelvic and perineal pain SNOMED: 85654477 Status: progressing Assessment/Plan clreared by gi and id to be dc so dc w f/u w gi of choice in one week Subjective ROS Limited/Unobtainable: Yes Constitutional: Reports: no symptoms Allergies: Coded Allergies: No Known Allergies (Unverified , 07/18/16) Objective Last 24 Hour Vital Signs Date Time Temp Pulse Resp B/P Pulse Ox O2 Delivery O2 Flow Rate FiO2 04/08/17 08:00 97.9 98 20 118/72 95 Room Air 04/08/17 00:01 97.5 73 18 118/70 97 Room Air 04/07/17 20:54 97.5 76 18 120/62 97 04/07/17 16:00 98.2 77 18 118/85 97 Room Air Intake and Output 04/07/17 04/08/17 19:00 07:00 Intake Total 960 ml 236 ml Output Total 860 ml 500 ml Balance 100 ml -264 ml Intake Oral 960 ml 236 ml Output Urine Total 860 ml 500 ml # Voids 3 2 # Bowel Movements 2 Laboratory Tests 04/08/17 01:50: Stool Occult Blood Negative 04/08/17 05:00: White Blood Count 6.7, Red Blood Count 3.41L, Hemoglobin 11.4L, Hematocrit 33.9L , Mean Corpuscular Volume 100H, Mean Corpuscular Hemoglobin 33.3H, Mean Corpuscular Hemoglobin Concent 33.5, Red Cell Distribution Width 12.5, Platelet Count 290, Mean Platelet Volume 6.7, Neutrophils (%) (Auto) 63.5, Lymphocytes (% ) (Auto) 15.9L, Monocytes (%) (Auto) 6.7, Eosinophils (%) (Auto) 12.7H, Basophils (%) (Auto) 1.3, Sodium Level 140, Potassium Level 4.0, Chloride Level 103, Carbon Dioxide Level 25, Anion Gap 12, Blood Urea Nitrogen 9, Creatinine 0.7, Estimat Glomerular Filtration Rate , Glucose Level 101, Calcium Level 8.6 Height (Feet): 5 Height (Inches): 8.00 Weight (Pounds): 165 Neck: supple Cardiovascular: normal rate Abdomen: non tender Kaylyn Watt MD April 08, 2017 11:49
[2017-04-08 12:00] VITALS: BP 131/67
[2017-04-08] MEDS ORDERED: LEVOFLOXACIN500 MG ORAL (15:03)
[2017-04-08] MEDS ORDERED: METRONIDAZOLE500 MG ORAL (15:04)
--- NOTE | 2017-04-08 16:01 | Infectious Diseases Prog Note ---
Assessment/Plan Problems: (1) Diverticulitis Assessment & Plan: improving , on levaquin and flagyl empirically, follow up with GI for further evaluation. will continue antibiotics for five more days (2) Pelvic pain Assessment & Plan: improving, due to the above , continue pain management as per primary Subjective Constitutional: Reports: no symptoms HEENT: Reports: no symptoms Respiratory: Reports: no symptoms Breasts: Reports: no symptoms Cardiovascular: Reports: no symptoms Gastrointestinal/Abdominal: Reports: no symptoms Genitourinary: Reports: no symptoms Neurologic: Reports: no symptoms Psychiatric: Reports: no symptoms Skin: Reports: no symptoms Allergies: Coded Allergies: No Known Allergies (Unverified , 07/18/16) Objective Vital Signs Last 24 Hour Vital Signs Date Time Temp Pulse Resp B/P Pulse Ox O2 Delivery O2 Flow Rate FiO2 04/08/17 12:00 98.1 84 20 131/67 95 Room Air 04/08/17 08:00 97.9 98 20 118/72 95 Room Air 04/08/17 00:01 97.5 73 18 118/70 97 Room Air 04/07/17 20:54 97.5 76 18 120/62 97 Height (Feet): 5 Height (Inches): 8.00 Weight (Pounds): 165 General Appearance: WD/WN, no acute distress HEENT: normocephalic, atraumatic, anicteric, mucous membranes moist Respiratory/Chest: chest wall non-tender, lungs clear, normal breath sounds, no respiratory distress, no accessory muscle use Cardiovascular: normal peripheral pulses, normal rate, regular rhythm, no gallop/murmur, no JVD Abdomen: normal bowel sounds, soft, non tender, no organomegaly, non distended , no mass Extremities: no cyanosis, no clubbing Skin: no rash, no lesions Laboratory Tests Test 04/08/17 01:50 04/08/17 05:00 Stool Occult Blood Negative (NEGATIVE) White Blood Count 6.7 K/UL (4.8-10.8) Red Blood Count 3.41 M/UL (4.70-6.10) L Hemoglobin 11.4 G/DL (14.2-18.0) L Hematocrit 33.9 % (42.0-52.0) L Mean Corpuscular Volume 100 FL (80-99) H Mean Corpuscular Hemoglobin 33.3 PG (27.0-31.0) H Mean Corpuscular Hemoglobin Concent 33.5 G/DL (32.0-36.0) Red Cell Distribution Width 12.5 % (11.6-14.8) Platelet Count 290 K/UL (150-450) Mean Platelet Volume 6.7 FL (6.5-10.1) Neutrophils (%) (Auto) 63.5 % (45.0-75.0) Lymphocytes (%) (Auto) 15.9 % (20.0-45.0) L Monocytes (%) (Auto) 6.7 % (1.0-10.0) Eosinophils (%) (Auto) 12.7 % (0.0-3.0) H Basophils (%) (Auto) 1.3 % (0.0-2.0) Sodium Level 140 mEQ/L (135-145) Potassium Level 4.0 mEQ/L (3.4-4.9) Chloride Level 103 mEQ/L (98-107) Carbon Dioxide Level 25 mEQ/L (20-30) Anion Gap 12 (5-15) Blood Urea Nitrogen 9 mg/dL (7-23) Creatinine 0.7 mg/dL (0.7-1.2) Estimat Glomerular Filtration Rate mL/min (>60) Glucose Level 101 mg/dL (74-106) Calcium Level 8.6 mg/dL (8.6-10.2) Current Medications Medications (Trade) Dose Ordered Sig/Esther Route PRN Reason Start Time Stop Time Status Last Admin Dose Admin Acetaminophen 500 mg 500 mg Q4H PRN ORAL Fever/Headache/Mild Pain 04/05/17 18:15 05/05/17 18:14 04/05/17 21:49 Levofloxacin 100 ml @ 100 mls/hr Q24H IVPB 04/05/17 23:00 04/12/17 22:59 04/07/17 23:52 Metronidazole (Flagyl) 100 ml @ 100 mls/hr Q8HR IVPB 04/05/17 22:00 04/12/17 21:59 04/08/17 14:21 Ana Ann M.D. April 08, 2017 16:01
--- NOTE | 2017-04-08 17:42 | General Progress Note ---
Assessment/Plan Assessment/Plan ASSESSMENT AND RECS: # Anemia secondary to chronic disease, anemia workup reveals no evidence of iron deficiency, stable for d/c # Macrocytosis - potentially 2/2 meds # Eosinophilia is elevated at 11% rule out ova and parasites from gi source, results are pending # Decreased h/h rule out gi bleed, colo in 2months # Acute diverticulitis. on abx and consider gi eval with scope in approx 2 months as per GI recs # Abdominal pain and pelvic pain due to the above. Continue pain management as per the primary # GREATLY Appreciate Consultation Subjective Constitutional: Reports: no symptoms HEENT: Reports: no symptoms Cardiovascular: Reports: no symptoms Respiratory: Reports: no symptoms Gastrointestinal/Abdominal: Reports: poor appetite Genitourinary: Reports: no symptoms Neurologic/Psychiatric: Reports: no symptoms Endocrine: Reports: no symptoms Hematologic/Lymphatic: Reports: anemia Allergies: Coded Allergies: No Known Allergies (Unverified , 07/18/16) Subjective no events, no reports or hematochezia overnight, stable for d/c Objective Last 24 Hour Vital Signs Date Time Temp Pulse Resp B/P Pulse Ox O2 Delivery O2 Flow Rate FiO2 04/08/17 12:00 98.1 84 20 131/67 95 Room Air 04/08/17 08:00 97.9 98 20 118/72 95 Room Air 04/08/17 00:01 97.5 73 18 118/70 97 Room Air 04/07/17 20:54 97.5 76 18 120/62 97 Intake and Output 04/07/17 04/08/17 19:00 07:00 Intake Total 960 ml 236 ml Output Total 860 ml 500 ml Balance 100 ml -264 ml Intake Oral 960 ml 236 ml Output Urine Total 860 ml 500 ml # Voids 3 2 # Bowel Movements 2 Laboratory Tests 04/08/17 01:50: Stool Occult Blood Negative 04/08/17 05:00: White Blood Count 6.7, Red Blood Count 3.41L, Hemoglobin 11.4L, Hematocrit 33.9L , Mean Corpuscular Volume 100H, Mean Corpuscular Hemoglobin 33.3H, Mean Corpuscular Hemoglobin Concent 33.5, Red Cell Distribution Width 12.5, Platelet Count 290, Mean Platelet Volume 6.7, Neutrophils (%) (Auto) 63.5, Lymphocytes (% ) (Auto) 15.9L, Monocytes (%) (Auto) 6.7, Eosinophils (%) (Auto) 12.7H, Basophils (%) (Auto) 1.3, Sodium Level 140, Potassium Level 4.0, Chloride Level 103, Carbon Dioxide Level 25, Anion Gap 12, Blood Urea Nitrogen 9, Creatinine 0.7, Estimat Glomerular Filtration Rate , Glucose Level 101, Calcium Level 8.6 Height (Feet): 5 Height (Inches): 8.00 Weight (Pounds): 165 General Appearance: no apparent distress EENT: TMs normal Neck: normal alignment Cardiovascular: normal rate Respiratory/Chest: lungs clear Abdomen: no organomegaly Extremities: non-tender Edema: 1+ Leg (L), 1+ Leg (R) Edema: mild edema Neurologic: alert Skin: normal pigmentation Yong Cortez April 08, 2017 17:42
--- NOTE | 2017-04-10 13:04 | Discharge Summary ---
Discharge Summary Hospital Course Date of Admission April 05, 2017 at 14:15 Date of Discharge April 08, 2017 at 17:00 Admitting Diagnosis diverticulitis HPI Albino Brown is a 77 year old male who was admitted on April 05, 2017 at 14:15 for Diverticulitis Hospital Course [id number] Discharge Discharge Disposition Patient was discharged to Home (01) Discharge Diagnoses: Isela aMrtinez NP April 10, 2017 13:04
== END 2017-04-08 17:00 | disposition home or self-care (01) | DRG 392 ==
LOC: EMR 11:25 → 3E 14:15 → OBSVTOIN 14:15 → INTOOBSV 14:15 → EDBEDREQ 14:46 → 3E 20:56
DX: K57.92 Diverticulitis of intestine, part unspecified, without perforation or abscess without bleeding (principal); D72.1 Eosinophilia; G20 Parkinson's disease; I10 Essential (primary) hypertension; K21.9 Gastro-esophageal reflux disease without esophagitis; E78.5 Hyperlipidemia, unspecified; N40.0 Benign prostatic hyperplasia without lower urinary tract symptoms; Z79.02 Long term (current) use of antithrombotics/antiplatelets; Z87.891 Personal history of nicotine dependence; I51.9 Heart disease, unspecified; D63.8 Anemia in other chronic diseases classified elsewhere
CPT/HCPCS: 36415; 74177; 80048; 80053; 81003; 82270; 82607; 82728; 82746; 83540; 83550; 83690; 84484; 85007; 85025; 85044; 85060; 85384; 93005; 93970; J2405

== ENCOUNTER 2017-08-19 17:03 | Inpatient (IN) | payer OTHER, MEDICAID ==
[~2017-08-19] VITALS: Ht 170.2 cm; Wt 72.6 kg
[~2017-08-19 17:03] MED LIST changes: +LEVOFLOXACIN500 MG ORAL; +METOPROLOL TART25 MG ORAL; +METRONIDAZOLE500 MG ORAL; +SINEMET 25-1001 EAC1 ORAL
[2017-08-19] MEDS ORDERED: Sodium Chloride 500ML 500 ML IV ONE (17:16)
[2017-08-19 17:20] VITALS: BP 111/55
--- NOTE | 2017-08-19 17:24 | Emergency Room Report ---
History of Present Illness General Chief Complaint: Difficulty breathing Source: Patient, Medical Record Present Illness HPI Patient is 77-year-old male presented after increased difficulty breathing. Patient prior history of COPD as well as lung cancer. The patient reports having prior a lung resection to his left lung. He reports having gradually worsening difficulty breathing. He denies any shortness of breath. Allergies: Coded Allergies: No Known Allergies (Unverified , 07/18/16) Patient History Past Medical History: see triage record Reviewed Nursing Documentation: PMH: Agreed, PSxH: Agreed Nursing Documentation-PMH Past Medical History: No History, Except For Hx Cardiac Problems: Yes Hx Hypertension: Yes Hx Asthma: Yes Hx COPD: Yes Hx Cancer: No Hx Gastrointestinal Problems: No Hx Neurological Problems: Yes - Parkinson's Review of Systems All Other Systems: negative except mentioned in HPI Physical Exam Vital Signs Date Time Temp Pulse Resp B/P (MAP) Pulse Ox O2 Delivery O2 Flow Rate FiO2 08/19/17 17:07 98.2 96 18 125/69 100 Non-Rebreather 15.0 Sp02 EP Interpretation: reviewed, normal General Appearance: normal inspection, well appearing, no apparent distress, alert, GCS 15 Head: atraumatic ENT: normal ENT inspection, hearing grossly normal, normal voice Neck: normal inspection, full range of motion, supple, no bony tend Respiratory: no retraction, wheezing, expiration, other - prolonged respiration Cardiovascular #1: regular rate, rhythm, no edema Gastrointestinal: normal inspection, normal bowel sounds, non tender, soft, no guarding, no hernia Genitourinary: no CVA tenderness Musculoskeletal: normal inspection, back normal, normal range of motion Neurologic: normal inspection, alert, responsive, speech normal Psychiatric: normal inspection, judgement/insight normal, mood/affect normal Skin: normal inspection, normal color, no rash Medical Decision Making Diagnostic Impression: Primary Impression: COPD exacerbation Additional Impression: Hx of cancer of lung ER Course Patient presented for shortness of breath. Differential included but was not limited to anemia, pneumonia, pneumothorax, myocardial infarction, pericardial effusion, congestive heart failure, acidosis. Because of complexity of patient' s case laboratory testing and imaging studies were ordered. The patient was given Solu-Medrol as well as breathing treatments some improvement. EKG interpreted by me showed normal sinus rhythm with a rate of [address] or T wave changes. . Chest Xray interpreted by me 1 view showed no evident infiltrate, normal mediastinum, and normal cardiac size.The patient was noted to have continued difficulty breathing wheezing Dr. Kaylyn Ly was contacted for inpatient management due to previous admission Labs Test 08/19/17 17:45 White Blood Count 7.0 K/UL (4.8-10.8) Red Blood Count 3.53 M/UL (4.70-6.10) Hemoglobin 11.8 G/DL (14.2-18.0) Hematocrit 36.6 % (42.0-52.0) Mean Corpuscular Volume 104 FL (80-99) Mean Corpuscular Hemoglobin 33.4 PG (27.0-31.0) Mean Corpuscular Hemoglobin Concent 32.2 G/DL (32.0-36.0) Red Cell Distribution Width 11.1 % (11.6-14.8) Platelet Count 302 K/UL (150-450) Mean Platelet Volume 6.6 FL (6.5-10.1) Neutrophils (%) (Auto) 62.2 % (45.0-75.0) Lymphocytes (%) (Auto) 11.8 % (20.0-45.0) Monocytes (%) (Auto) 9.1 % (1.0-10.0) Eosinophils (%) (Auto) 15.5 % (0.0-3.0) Basophils (%) (Auto) 1.4 % (0.0-2.0) Sodium Level 136 mEQ/L (135-145) Potassium Level 4.2 mEQ/L (3.4-4.9) Chloride Level 99 mEQ/L (98-107) Carbon Dioxide Level 24 mEQ/L (20-30) Anion Gap 13 (5-15) Blood Urea Nitrogen 11 mg/dL (7-23) Creatinine 0.9 mg/dL (0.7-1.2) Estimat Glomerular Filtration Rate mL/min (>60) Glucose Level 123 mg/dL (74-106) Lactic Acid Level 1.60 mmol/L (0.66-2.22) Calcium Level 9.1 mg/dL (8.6-10.2) Total Bilirubin 0.8 mg/dL (0.0-1.2) Aspartate Amino Transf (AST/SGOT) 21 U/L (5-40) Alanine Aminotransferase (ALT/SGPT) 10 U/L (3-41) Alkaline Phosphatase 102 U/L (40-129) Pro-B-Type Natriuretic Peptide 375 pg/mL (0-450) Total Protein 6.7 g/dL (6.6-8.7) Albumin 3.8 g/dL (3.5-5.2) Globulin 2.9 g/dL Albumin/Globulin Ratio 1.3 (1.0-2.7) EKG Diagnostic Results Rate: normal Rhythm: NSR ST Segments: no acute changes ASA given to the pt in ED: No Rhythm Strip Diag. Results EP Interpretation: yes Rhythm: NSR, no PVC's Last Vital Signs Date Time Temp Pulse Resp B/P (MAP) Pulse Ox O2 Delivery O2 Flow Rate FiO2 08/19/17 17:07 98.2 96 18 125/69 100 Non-Rebreather 15.0 Status: unchanged Disposition: ADMITTED INPATIENT Condition: Serious Satya Coleman Aug 19, 2017 17:24
[2017-08-19] MEDS ORDERED: Azithromycin 500 MG in NS 275 ML IV ONE (17:30)
[2017-08-19] MEDS ORDERED: Albuterol ud Inhalation HHN ONE (17:30)
[2017-08-19] MEDS ORDERED: cefTRIAXone 1 GM in NS 55 ML IV SCH (17:30)
[2017-08-19] MEDS ORDERED: Solu-MEDROL 125mg Inj IVP ONE (17:30)
[2017-08-19] MEDS ORDERED: Ipratropium 0.02% Inh Soln 2.5ml UD HHN ONE (17:30)
[2017-08-19 17:59] LABS: BASOPHILS % (AUTO) 1.4 % (0.0-2.0); EOSINOPHILS % (AUTO) 15.5 % (0.0-3.0); LYMPHOCYTES % (AUTO) 11.8 % (20.0-45.0); MEAN CORPUSCULAR HEMOGLOBIN 33.4 PG (27.0-31.0); MEAN CORPUSCULAR HGB CONC 32.2 G/DL (32.0-36.0); MEAN CORPUSCULAR VOLUME 104 FL (80-99); MEAN PLATELET VOLUME 6.6 FL (6.5-10.1); MONOCYTES % (AUTO) 9.1 % (1.0-10.0); NEUTROPHILS % (AUTO) 62.2 % (45.0-75.0); PLATELET COUNT 302 K/UL (150-450); RED BLOOD COUNT 3.53 M/UL (4.70-6.10); RED CELL DISTRIBUTION WIDTH 11.1 % (11.6-14.8)
[2017-08-19 18:13] LABS: ALANINE AMINOTRANSFERASE 10 U/L (3-41); ALBUMIN/GLOBULIN RATIO 1.3 (1.0-2.7); ANION GAP 13 (5-15); ASPARTATE AMINO TRANSFERASE 21 U/L (5-40); CALCIUM 9.1 mg/dL (8.6-10.2); CARBON DIOXIDE 24 mEQ/L (20-30); CHLORIDE 99 mEQ/L (98-107); CREATININE 0.9 mg/dL (0.7-1.2); HEMOLYSIS 25; POTASSIUM 4.2 mEQ/L (3.4-4.9); SODIUM 136 mEQ/L (135-145); TOTAL PROTEIN 6.7 g/dL (6.6-8.7)
[2017-08-19 18:20] VITALS: BP 132/58
[2017-08-19 18:27] LABS: TROPONIN I < 0.30 ng/mL (<=0.30)
[2017-08-19] MEDS ORDERED: Azithromycin 500mg Inj IV ONE (18:59)
[2017-08-19 20:10] VITALS: BP 116/94
[2017-08-19 21:00] VITALS: BP 114/63
[2017-08-19] MEDS ORDERED: Meclizine 25mg tab ORAL PRN (23:30)
[2017-08-20 00:28] VITALS: BP 106/77
[2017-08-20 00:30] LABS: APPEARANCE,URINE CLEAR; KETONES,URINE NEGATIVE (NEGATIVE); LEUKOCYTE ESTERASE ,URINE NEGATIVE (NEGATIVE); NITRITE,URINE NEGATIVE (NEGATIVE); PH,URINE 5 (4.5-8.0); PROTEIN,URINE NEGATIVE (NEGATIVE); UROBILINOGEN,URINE NORMAL MG/DL (0.0-1.0)
[2017-08-20 04:00] VITALS: BP 108/57
[2017-08-20 08:02] VITALS: BP 127/85
[2017-08-20 08:16] LABS: BASOPHILS % (AUTO) 0.7 % (0.0-2.0); EOSINOPHILS % (AUTO) 0.1 % (0.0-3.0); LYMPHOCYTES % (AUTO) 10.7 % (20.0-45.0); MEAN CORPUSCULAR HEMOGLOBIN 34.1 PG (27.0-31.0); MEAN CORPUSCULAR HGB CONC 31.5 G/DL (32.0-36.0); MEAN CORPUSCULAR VOLUME 109 FL (80-99); MEAN PLATELET VOLUME 6.1 FL (6.5-10.1); MONOCYTES % (AUTO) 6.2 % (1.0-10.0); NEUTROPHILS % (AUTO) 82.3 % (45.0-75.0); PLATELET COUNT 305 K/UL (150-450); RED BLOOD COUNT 3.31 M/UL (4.70-6.10); RED CELL DISTRIBUTION WIDTH 11.4 % (11.6-14.8); WHITE BLOOD COUNT 5.1 K/UL (4.8-10.8)
[2017-08-20 08:47] LABS: ANION GAP 11 (5-15); CALCIUM 8.8 mg/dL (8.6-10.2); CARBON DIOXIDE 24 mEQ/L (20-30); CHLORIDE 106 mEQ/L (98-107); CREATININE 0.7 mg/dL (0.7-1.2); HEMOLYSIS 0; POTASSIUM 4.5 mEQ/L (3.4-4.9); SODIUM 141 mEQ/L (135-145)
[2017-08-20] MEDS: Metoprolol 25mg tab ORAL SCH ×2 (09:18→20:16)
[2017-08-20] MEDS: Sinemet 25/100 tab ORAL SCH (09:18)
[2017-08-20] MEDS: Albuterol/Ipratropium 3ml neb HHN PRN ×2 (11:29→23:03)
--- NOTE | 2017-08-20 11:39 | Diagnostic Imaging Report ---
Indication: Dyspnea Comparison: None A single view chest radiograph was obtained. Findings: Veil-like density noted at the right lung base. This could be from prominent epicardial fat which is probably most likely. Some degree of atelectasis of the middle lobe not excluded. Heart size is probably normal. Bones are osteopenic. Impression: Suspect prominent epicardial fat accounting for the density at the right lung base. Middle lobe atelectasis is possible.
[2017-08-20 11:41] VITALS: BP 115/63
--- NOTE | 2017-08-20 11:52 | Consultation ---
History of Present Illness General Date patient seen: Aug 20, 2017 Chief Complaint: Upper Respiratory Illness Present Illness HPI 77 year old male with hx of parkinson admitted for increased SOB and cough. Pt was diagnosed to have RLL infiltrate and admitted for further management. Allergies: Coded Allergies: No Known Allergies (Unverified , 07/18/16) Medication History Scheduled Carbidopa/Levodopa 25-100 Mg* (Sinemet 25-100 Mg Tablet*), 1 TAB ORAL DAILY, ( Reported) Clopidogrel Bisulfate* (Plavix*), 75 MG ORAL DAILY, (Reported) Ferrous Sulfate* (Ferrous Sulfate*), Unknown Dose ORAL DAILY, (Reported) Levofloxacin (Levofloxacin*), 500 MG ORAL DAILY, (Reported) Meclizine Hcl* (Antivert*), 50 MG ORAL TID Metoprolol Tartrate* (Metoprolol Tartrate*), 25 MG ORAL EVERY 12 HOURS, ( Reported) Metronidazole* (Flagyl*), 500 MG ORAL EVERY 8 HOURS, (Reported) Omeprazole Magnesium (Prilosec Otc), 20 MG ORAL DAILY, (Reported) Simvastatin (Zocor), Unknown Dose ORAL BEDTIME, (Reported) Patient History Healthcare decision maker Resuscitation status Full Code Advanced Directive on File No Past Medical/Surgical History Past Medical/Surgical History: (1) Hx of cancer of lung Review of Systems All Other Systems: negative except mentioned in HPI Physical Exam General Appearance: WD/WN, no apparent distress Lines, tubes and drains: peripheral HEENT: normocephalic Neck: non-tender, normal alignment Respiratory/Chest: chest wall non-tender, lungs clear Cardiovascular/Chest: normal peripheral pulses, normal rate Abdomen: normal bowel sounds Genitourinary/Rectal: normal genital exam, normal rectal exam Last 24 Hour Vital Signs Date Time Temp Pulse Resp B/P (MAP) Pulse Ox O2 Delivery O2 Flow Rate FiO2 08/20/17 11:41 97.7 72 20 115/63 100 Nasal Cannula 2.0 08/20/17 11:29 30 08/20/17 11:29 90 22 98 Nasal Cannula 2.5 30 08/20/17 09:18 111 127/85 08/20/17 08:02 96.8 111 20 127/85 100 Nasal Cannula 2.0 08/20/17 08:01 97 21 Nasal Cannula 2.5 28 08/20/17 04:00 85 08/20/17 04:00 97.0 97 20 108/57 99 Room Air 08/20/17 00:28 97.0 94 20 106/77 96 Room Air 08/20/17 00:00 98 08/19/17 21:00 99.3 99 21 114/63 99 Room Air 08/19/17 20:35 94 18 116/94 98 2.0 08/19/17 20:10 100.1 94 18 116/94 98 Nasal Cannula 2.0 08/19/17 18:20 100 25 132/58 100 Nasal Cannula 2.0 08/19/17 17:45 98 18 100 Nasal Cannula 2.0 28 08/19/17 17:32 94 24 98 Nasal Cannula 2.0 28 08/19/17 17:32 28 08/19/17 17:32 94 24 Nasal Cannula 2.0 28 08/19/17 17:20 99.2 97 22 111/55 98 Nasal Cannula 2.0 08/19/17 17:20 97 22 Nasal Cannula 2.0 98 08/19/17 17:07 98.2 96 18 125/69 100 Non-Rebreather 15.0 Intake and Output 08/20/17 08/21/17 19:00 07:00 Intake Total 320 ml Balance 320 ml Intake Oral 320 ml Laboratory Tests Test 08/19/17 17:45 08/20/17 00:05 08/20/17 07:45 White Blood Count 7.0 K/UL (4.8-10.8) 5.1 K/UL (4.8-10.8) Red Blood Count 3.53 M/UL (4.70-6.10) L 3.31 M/UL (4.70-6.10) L Hemoglobin 11.8 G/DL (14.2-18.0) L 11.3 G/DL (14.2-18.0) L Hematocrit 36.6 % (42.0-52.0) L 35.9 % (42.0-52.0) L Mean Corpuscular Volume 104 FL (80-99) H 109 FL (80-99) H Mean Corpuscular Hemoglobin 33.4 PG (27.0-31.0) H 34.1 PG (27.0-31.0) H Mean Corpuscular Hemoglobin Concent 32.2 G/DL (32.0-36.0) 31.5 G/DL (32.0-36.0) L Red Cell Distribution Width 11.1 % (11.6-14.8) L 11.4 % (11.6-14.8) L Platelet Count 302 K/UL (150-450) 305 K/UL (150-450) Mean Platelet Volume 6.6 FL (6.5-10.1) 6.1 FL (6.5-10.1) L Neutrophils (%) (Auto) 62.2 % (45.0-75.0) 82.3 % (45.0-75.0) H Lymphocytes (%) (Auto) 11.8 % (20.0-45.0) L 10.7 % (20.0-45.0) L Monocytes (%) (Auto) 9.1 % (1.0-10.0) 6.2 % (1.0-10.0) Eosinophils (%) (Auto) 15.5 % (0.0-3.0) H 0.1 % (0.0-3.0) Basophils (%) (Auto) 1.4 % (0.0-2.0) 0.7 % (0.0-2.0) Sodium Level 136 mEQ/L (135-145) 141 mEQ/L (135-145) Potassium Level 4.2 mEQ/L (3.4-4.9) 4.5 mEQ/L (3.4-4.9) Chloride Level 99 mEQ/L (98-107) 106 mEQ/L (98-107) Carbon Dioxide Level 24 mEQ/L (20-30) 24 mEQ/L (20-30) Anion Gap 13 (5-15) 11 (5-15) Blood Urea Nitrogen 11 mg/dL (7-23) 13 mg/dL (7-23) Creatinine 0.9 mg/dL (0.7-1.2) 0.7 mg/dL (0.7-1.2) Estimat Glomerular Filtration Rate mL/min (>60) mL/min (>60) Glucose Level 123 mg/dL (74-106) H 174 mg/dL (74-106) H Lactic Acid Level 1.60 mmol/L (0.66-2.22) Calcium Level 9.1 mg/dL (8.6-10.2) 8.8 mg/dL (8.6-10.2) Total Bilirubin 0.8 mg/dL (0.0-1.2) Aspartate Amino Transf (AST/SGOT) 21 U/L (5-40) Alanine Aminotransferase (ALT/SGPT) 10 U/L (3-41) Alkaline Phosphatase 102 U/L (40-129) Troponin I < 0.30 ng/mL (<=0.30) Pro-B-Type Natriuretic Peptide 375 pg/mL (0-450) Total Protein 6.7 g/dL (6.6-8.7) Albumin 3.8 g/dL (3.5-5.2) Globulin 2.9 g/dL Albumin/Globulin Ratio 1.3 (1.0-2.7) Urine Color Pale yellow Urine Appearance Clear Urine pH 5 (4.5-8.0) Urine Specific Dwight 1.020 (1.005-1.035) Urine Protein Negative (NEGATIVE) Urine Glucose (UA) Negative (NEGATIVE) Urine Ketones Negative (NEGATIVE) Urine Occult Blood Negative (NEGATIVE) Urine Nitrite Negative (NEGATIVE) Urine Bilirubin Negative (NEGATIVE) Urine Urobilinogen Normal MG/DL (0.0-1.0) Urine Leukocyte Esterase Negative (NEGATIVE) Height (Feet): 5 Height (Inches): 7.00 Weight (Pounds): 160 Medications Current Medications Medications (Trade) Dose Ordered Sig/Esther Route PRN Reason Start Time Stop Time Status Last Admin Dose Admin Acetaminophen (Tylenol) 650 mg Q4H PRN ORAL Mild Pain/Temp > 100.5 08/19/17 23:30 09/18/17 23:29 Albuterol/ Ipratropium (DuoNeb 0.5-3(2.5)mg/3ml) 3 ml Q4H PRN HHN Shortness of Breath 08/19/17 23:30 08/24/17 23:29 08/20/17 11:29 Atorvastatin Calcium (Lipitor) 10 mg DAILY ORAL 08/20/17 09:00 09/19/17 08:59 08/20/17 09:17 Carbidopa/Levodopa (Sinemet 25/100) 1 ea DAILY ORAL 08/20/17 09:00 09/19/17 08:59 08/20/17 09:18 Clopidogrel Bisulfate (Plavix) 75 mg DAILY ORAL 08/20/17 09:00 09/19/17 08:59 08/20/17 09:18 Meclizine HCl (Antivert) 25 mg Q8H PRN ORAL for dizziness 08/19/17 23:30 09/18/17 23:29 08/20/17 04:26 Metoprolol Tartrate (Lopressor) 25 mg Q12HR ORAL 08/20/17 09:00 09/19/17 08:59 08/20/17 09:18 Pantoprazole (Protonix) 40 mg DAILY ORAL 08/20/17 09:00 09/19/17 08:59 08/20/17 09:17 Promethazine HCl/ Codeine (Phenergan with Codeine) 5 ml Q4H PRN ORAL For Cough 08/20/17 11:45 09/19/17 11:44 Theophylline (Fish-Dur) 100 mg EVERY 12 HOURS ORAL 08/20/17 21:00 09/19/17 20:59 Assessment/Plan Problem List: (1) COPD exacerbation ICD Codes: J44.1 - Chronic obstructive pulmonary disease with (acute) exacerbation SNOMED: 430641686, 164395858 (2) Hx of cancer of lung ICD Codes: Z85.118 - Personal history of other malignant neoplasm of bronchus and lung SNOMED: 553923048, 693456232 (3) Anemia ICD Codes: D64.9 - Anemia, unspecified SNOMED: 565305488 (4) Parkinson disease ICD Codes: G20 - Parkinson's disease SNOMED: 07950089 Assessment/Plan respiratory treatment Iv abx sputum induction check cultures CT chest to look for cause of RLL atelectasis. MACIE DALY Aug 20, 2017 11:52
--- NOTE | 2017-08-20 14:11 | Diagnostic Imaging Report ---
Indication: Dyspnea Comparison: 08/19/17 A single view chest radiograph was obtained. Findings: Again there is a well-circumscribed obliquely oriented density projects over the right heart border obscured the right hemidiaphragm. This could be due to atelectasis or prominent epicardial fat. One other possibility is prior surgery and resection of part of the lung which resembles atelectasis radiographically. There is no change. Impression: No change from the prior day The findings discussed with Dr. Pearce. Patient will have a CT.
--- NOTE | 2017-08-20 15:39 | Infectious Diseases Prog Note ---
Assessment/Plan Problems: (1) COPD exacerbation Assessment & Plan: continue zithromax empirically, continue inhalers, and oxygen therapy, taper steroids (2) Hx of cancer of lung Assessment & Plan: recommend CT scan of the chest for follow up, pulmonary is following Subjective Allergies: Coded Allergies: No Known Allergies (Unverified , 07/18/16) Objective Vital Signs Last 24 Hour Vital Signs Date Time Temp Pulse Resp B/P (MAP) Pulse Ox O2 Delivery O2 Flow Rate FiO2 08/20/17 11:41 97.7 72 20 115/63 100 Nasal Cannula 2.0 08/20/17 11:40 86 20 100 Nasal Cannula 2.0 28 08/20/17 11:29 30 08/20/17 11:29 90 22 98 Nasal Cannula 2.5 30 08/20/17 09:18 111 127/85 08/20/17 08:02 96.8 111 20 127/85 100 Nasal Cannula 2.0 08/20/17 08:01 97 21 Nasal Cannula 2.5 28 08/20/17 04:00 85 08/20/17 04:00 97.0 97 20 108/57 99 Room Air 08/20/17 00:28 97.0 94 20 106/77 96 Room Air 08/20/17 00:00 98 08/19/17 21:00 99.3 99 21 114/63 99 Room Air 08/19/17 20:35 94 18 116/94 98 2.0 08/19/17 20:10 100.1 94 18 116/94 98 Nasal Cannula 2.0 08/19/17 18:20 100 25 132/58 100 Nasal Cannula 2.0 08/19/17 17:45 98 18 100 Nasal Cannula 2.0 28 08/19/17 17:32 94 24 98 Nasal Cannula 2.0 28 08/19/17 17:32 28 08/19/17 17:32 94 24 Nasal Cannula 2.0 28 08/19/17 17:20 99.2 97 22 111/55 98 Nasal Cannula 2.0 08/19/17 17:20 97 22 Nasal Cannula 2.0 98 08/19/17 17:07 98.2 96 18 125/69 100 Non-Rebreather 15.0 Height (Feet): 5 Height (Inches): 7.00 Weight (Pounds): 160 Laboratory Tests Test 08/19/17 17:45 105/17 00:05 08/20/17 07:45 White Blood Count 7.0 K/UL (4.8-10.8) 5.1 K/UL (4.8-10.8) Red Blood Count 3.53 M/UL (4.70-6.10) L 3.31 M/UL (4.70-6.10) L Hemoglobin 11.8 G/DL (14.2-18.0) L 11.3 G/DL (14.2-18.0) L Hematocrit 36.6 % (42.0-52.0) L 35.9 % (42.0-52.0) L Mean Corpuscular Volume 104 FL (80-99) H 109 FL (80-99) H Mean Corpuscular Hemoglobin 33.4 PG (27.0-31.0) H 34.1 PG (27.0-31.0) H Mean Corpuscular Hemoglobin Concent 32.2 G/DL (32.0-36.0) 31.5 G/DL (32.0-36.0) L Red Cell Distribution Width 11.1 % (11.6-14.8) L 11.4 % (11.6-14.8) L Platelet Count 302 K/UL (150-450) 305 K/UL (150-450) Mean Platelet Volume 6.6 FL (6.5-10.1) 6.1 FL (6.5-10.1) L Neutrophils (%) (Auto) 62.2 % (45.0-75.0) 82.3 % (45.0-75.0) H Lymphocytes (%) (Auto) 11.8 % (20.0-45.0) L 10.7 % (20.0-45.0) L Monocytes (%) (Auto) 9.1 % (1.0-10.0) 6.2 % (1.0-10.0) Eosinophils (%) (Auto) 15.5 % (0.0-3.0) H 0.1 % (0.0-3.0) Basophils (%) (Auto) 1.4 % (0.0-2.0) 0.7 % (0.0-2.0) Sodium Level 136 mEQ/L (135-145) 141 mEQ/L (135-145) Potassium Level 4.2 mEQ/L (3.4-4.9) 4.5 mEQ/L (3.4-4.9) Chloride Level 99 mEQ/L (98-107) 106 mEQ/L (98-107) Carbon Dioxide Level 24 mEQ/L (20-30) 24 mEQ/L (20-30) Anion Gap 13 (5-15) 11 (5-15) Blood Urea Nitrogen 11 mg/dL (7-23) 13 mg/dL (7-23) Creatinine 0.9 mg/dL (0.7-1.2) 0.7 mg/dL (0.7-1.2) Estimat Glomerular Filtration Rate mL/min (>60) mL/min (>60) Glucose Level 123 mg/dL (74-106) H 174 mg/dL (74-106) H Lactic Acid Level 1.60 mmol/L (0.66-2.22) Calcium Level 9.1 mg/dL (8.6-10.2) 8.8 mg/dL (8.6-10.2) Total Bilirubin 0.8 mg/dL (0.0-1.2) Aspartate Amino Transf (AST/SGOT) 21 U/L (5-40) Alanine Aminotransferase (ALT/SGPT) 10 U/L (3-41) Alkaline Phosphatase 102 U/L (40-129) Troponin I < 0.30 ng/mL (<=0.30) Pro-B-Type Natriuretic Peptide 375 pg/mL (0-450) Total Protein 6.7 g/dL (6.6-8.7) Albumin 3.8 g/dL (3.5-5.2) Globulin 2.9 g/dL Albumin/Globulin Ratio 1.3 (1.0-2.7) Urine Color Pale yellow Urine Appearance Clear Urine pH 5 (4.5-8.0) Urine Specific Howard 1.020 (1.005-1.035) Urine Protein Negative (NEGATIVE) Urine Glucose (UA) Negative (NEGATIVE) Urine Ketones Negative (NEGATIVE) Urine Occult Blood Negative (NEGATIVE) Urine Nitrite Negative (NEGATIVE) Urine Bilirubin Negative (NEGATIVE) Urine Urobilinogen Normal MG/DL (0.0-1.0) Urine Leukocyte Esterase Negative (NEGATIVE) Carcinoembryonic Antigen 2.4 ng/mL Current Medications Medications (Trade) Dose Ordered Sig/Esther Route PRN Reason Start Time Stop Time Status Last Admin Dose Admin Acetaminophen (Tylenol) 650 mg Q4H PRN ORAL Mild Pain/Temp > 100.5 08/19/17 23:30 09/18/17 23:29 Albuterol/ Ipratropium (DuoNeb 0.5-3(2.5)mg/3ml) 3 ml Q4H PRN HHN Shortness of Breath 08/19/17 23:30 08/24/17 23:29 08/20/17 11:29 Atorvastatin Calcium (Lipitor) 10 mg DAILY ORAL 08/20/17 09:00 09/19/17 08:59 08/20/17 09:17 Carbidopa/Levodopa (Sinemet 25/100) 1 ea DAILY ORAL 08/20/17 09:00 09/19/17 08:59 08/20/17 09:18 Clopidogrel Bisulfate (Plavix) 75 mg DAILY ORAL 08/20/17 09:00 09/19/17 08:59 08/20/17 09:18 Meclizine HCl (Antivert) 25 mg Q8H PRN ORAL for dizziness 08/19/17 23:30 09/18/17 23:29 08/20/17 04:26 Metoprolol Tartrate (Lopressor) 25 mg Q12HR ORAL 08/20/17 09:00 09/19/17 08:59 08/20/17 09:18 Pantoprazole (Protonix) 40 mg DAILY ORAL 08/20/17 09:00 09/19/17 08:59 08/20/17 09:17 Promethazine HCl/ Codeine (Phenergan with Codeine) 5 ml Q4H PRN ORAL For Cough 08/20/17 11:45 09/19/17 11:44 Theophylline (Fish-Dur) 100 mg EVERY 12 HOURS ORAL 08/20/17 21:00 09/19/17 20:59 Ana Ann M.D. Aug 20, 2017 15:39
[2017-08-20 15:42] VITALS: BP 101/45
--- NOTE | 2017-08-20 16:58 | Diagnostic Imaging Report ---
Indication: Chest pain Technique: Continuous helical transaxial imaging of the chest was obtained from the thoracic inlet to the upper abdomen after intravenous nonionic contrast administration. Coronal 2-D reformats were also obtained. Total Dose length Product (DLP): [address] Dose Index Volume (CTDIvol): 0.15, 8.11, 73, 15.12 mGy Comparison: none Findings: There is evidence of volume loss in the right hemithorax with shifting of the heart and mediastinum toward the right. The right hemidiaphragm is elevated anteriorly probably on the basis of previous partial resection of the lung, likely part of the middle lobe. The density seen on chest x-ray is due to fat just below the right hemidiaphragm. There is a moderate degree of fat as well as part of the hepatic flexure interposed between the liver and the diaphragm. This is a normal variant. There is no mass identified. There is no atelectasis identified. Small nodes are seen in the mediastinum nonspecific. The heart is unremarkable. There are no abnormal fluid collections. No consolidation identified. The upper part of the abdomen that is visualized shows gallstones and partially imaged cysts within both kidneys and liver. Impression: No evidence of malignancy on the basis of this exam. Right anterior basilar volume loss probably due to partial middle lobe resection. Please correlate with the surgical history. Gallstones Atherosclerotic disease The CT scanner at [facility] is accredited by the [employer] and the scans are performed using dose optimization techniques as appropriate to a performed exam including Automatic Exposure control.
[2017-08-20 20:25] VITALS: BP 110/54
[2017-08-20] MEDS: Theophylline ER 100mg ORAL SCH (21:17)
--- NOTE | 2017-08-20 23:30 | Consultation ---
DATE OF CONSULTATION: 08/20/2017 INFECTIOUS DISEASE CONSULTATION CONSULTING PHYSICIAN: Ana Ann M.D. REQUESTING PHYSICIAN: Kaylyn Watt M.D. Reason For Consultation: COPD exacerbation with bronchitis and recommendation for antibiotic therapy. History Of Present Illness: The patient is a 77-year-old male with past medical history significant for COPD, asthma, hypertension, coronary artery disease, and Parkinson's, who presented to [facility] Emergency Room with shortness of breath, cough, and wheezing. The patient had well known history of lung cancer, status post partial resection of the left lung. The patient's shortness of breath was getting worse with cough initially dry, became productive of yellowish phlegm, so he was admitted to the hospital for further evaluation and management and I was asked by the primary provider for antibiotic treatment and further care. As of note, the patient is poor historian. History was mainly obtained from the medical record and nursing staff. Past Medical History: Significant for coronary artery disease, hypertension, asthma, COPD, lung cancer, and Parkinson disease. Past Surgical History: He had left lung lobe resection due to lung cancer. FAMILY HISTORY: Noncontributory. SOCIAL HISTORY: The patient denied using drugs, tobacco, or alcohol. ALLERGIES: No known drug allergy. Medications: He received ceftriaxone and Zithromax in the emergency room. For the rest of his medications, please refer to [facility]. REVIEW OF SYSTEMS: Unable to obtain. The patient is poor historian. PHYSICAL EXAMINATION: Vital Signs: Temperature 97, pulse 85, respirations 20, blood pressure 108/57, and saturation 99% on room air. General: The patient is an elderly male, up in a chair, awake, alert, coughing with wheezing, not in acute distress. HEENT: Normocephalic and atraumatic. Pupils are both reactive to light. Moist oral mucosa. No exudate or thrush. NECK: Supple. No lymphadenopathy. CARDIOVASCULAR: Regular rate and rhythm. No murmur. Lungs: He had diffuse wheezing with diminished breathing sounds on both lung zelaya. Abdomen: Soft, nontender, and nondistended. Positive bowel sounds. No hepatosplenomegaly or ascites. EXTREMITIES: No edema or cyanosis. SKIN: No rash. No hives. Laboratory Data: Labs showed white count of 7000, hemoglobin of 11.8, and platelet count of 302,000. BUN of 11 and creatinine of 0.9. Urinalysis was negative for infection. Imaging Studies: Chest x-ray on admission showed prominent epicardial fat accounting for a density at the right lung base, middle lobe atelectasis is possible. ASSESSMENT AND RECOMMENDATION: 1. Chronic obstructive pulmonary disease with acute exacerbation and bronchitis. We will continue Zithromax empiric treatment for now. Taper steroid. Continue inhalers and oxygen. 2. History of lung cancer, status post resection. Recommend CT scan of the chest for followup. Pulmonary team is following. Ana Ann M.D. DR: SHEN JOB#: [id number] CC:
[2017-08-21 00:28] VITALS: BP 108/72
[2017-08-21 04:27] VITALS: BP_SYST 100; BP_SYST 102; BP_DIAS 58; BP_DIAS 65
--- NOTE | 2017-08-21 08:01 | History and Physical Report ---
DATE OF ADMISSION: 08/19/2017 History of Present Illness: The patient is admitted for COPD exacerbation, has history of left lung resection. The patient has some persevering cough and admitted for COPD exacerbation. Denies orthopnea. Denies nausea, vomiting, or diarrhea. No fever or chills. Past Medical History: Iron deficiency anemia, history of vertigo, hypertension, GERD, , dyslipidemia, CAD, Parkinson disease, history of lung cancer, anemia, and history of diverticulitis. PAST SURGICAL HISTORY: Partial resection of the lung. Medications: Plavix, Sinemet, ferrous sulfate, metoprolol, omeprazole, and simvastatin. ALLERGIES: No known allergies. FAMILY HISTORY: Noncontributory. Social History: The patient denies history of smoking, drug, or alcohol abuse. Review Of Systems: HEENT: Denies headaches. Respiratory: shortness of breath and cough. Cardiovascular: Denies any chest pain. Gastrointestinal: Denies nausea, vomiting, or diarrhea. Extremities: Denies pain. Central Nervous System: Denies any change in vision or speech pattern. PHYSICAL EXAMINATION: Vital Signs: Temperature is 97.7 degrees, pulse is 73, and blood pressure 115/63. HEENT: PERRLA. NECK: Supple. No lymphadenopathy. CHEST: Bilateral wheezing. CARDIOVASCULAR: Regular rate and rhythm. Gastrointestinal: Soft, nontender, and nondistended. No organomegaly. EXTREMITIES: 1+ edema. Neurologic: Reflexes are equal on both sides. He is able to move his extremities. Laboratory Data: Labs revealed WBC of 17, hemoglobin of 11.8, and platelets of 302,000. Sodium 136, potassium 4.2, BUN of 11, creatinine 0.9, and glucose 123. ASSESSMENT AND PLAN: 1. Chronic obstructive pulmonary disease exacerbation. 2. Rule out pneumonia. 3. Elevated BNP. 4. I have asked Dr. Hughes, Dr. Pearce, and Dr. Ann to see the patient for the above-mentioned diagnoses and treatment. Antibiotics per Dr. Ann. Kaylyn Watt M.D. DR: FUAD JOB#: [id number] CC:
[2017-08-21 08:32] VITALS: BP 128/64
[2017-08-21] MEDS: Metoprolol 25mg tab ORAL SCH ×2 (08:35→20:43)
[2017-08-21] MEDS: Sinemet 25/100 tab ORAL SCH (08:35)
[2017-08-21] MEDS: Theophylline ER 100mg ORAL SCH ×2 (08:35→20:44)
[2017-08-21] MEDS: Albuterol/Ipratropium 3ml neb HHN PRN ×2 (09:00→20:01)
--- NOTE | 2017-08-21 11:06 | Diagnostic Imaging Report ---
APPROVED REPORT CPT Code: 98037 Present Symptoms Shortness of breath Past History DVT :Left RIGHT LEG: Venous imaging reveals a patent deep venous system. There is no evidence of thrombus within the femoral, popliteal or tibial segments. The greater saphenous vein is also within normal limits. Doppler indicates normal spontaneous flow within these segments. LEFT LEG: Venous imaging reveals recanalized chronic thrombus in the superficial femoral vein. Large collateral vein noted anterior to the superficial femoral artery. The remainder of the deep venous system is within normal limits. There is no evidence of thrombus in the common femoral, popliteal or calf veins. The greater saphenous vein is also within normal limits. Doppler indicates normal spontaneous flow within these segments. There is no evidence of acute deep vein thrombosis.
[2017-08-21 11:49] VITALS: BP 105/55
--- NOTE | 2017-08-21 13:18 | General Progress Note ---
Assessment/Plan Problem List: (1) COPD exacerbation ICD Codes: J44.1 - Chronic obstructive pulmonary disease with (acute) exacerbation SNOMED: 611404348, 687660868 (2) Parkinson disease ICD Codes: G20 - Parkinson's disease SNOMED: 80372857 (3) Hx of cancer of lung ICD Codes: Z85.118 - Personal history of other malignant neoplasm of bronchus and lung SNOMED: 012562882, 137466960 Status: progressing Assessment/Plan wrote transfer to contracted hospital if ok w dr herrera copd [facility] Subjective ROS Limited/Unobtainable: Yes Allergies: Coded Allergies: No Known Allergies (Unverified , 07/18/16) Objective Last 24 Hour Vital Signs Date Time Temp Pulse Resp B/P (MAP) Pulse Ox O2 Delivery O2 Flow Rate FiO2 08/21/17 11:49 98.1 73 20 105/55 99 Room Air 08/21/17 09:09 81 18 99 Nasal Cannula 2.0 28 08/21/17 09:00 75 20 94 Room Air 08/21/17 08:35 74 128/64 08/21/17 08:32 97.9 74 20 128/64 98 Room Air 08/21/17 07:13 85 18 Nasal Cannula 2.0 28 08/21/17 07:13 98 Nasal Cannula 2.0 28 08/21/17 07:13 Nasal Cannula 2.0 28 08/21/17 04:27 97.2 69 16 102/58 92 Nasal Cannula 08/21/17 04:00 70 08/21/17 00:28 97.3 67 20 108/72 67 08/21/17 00:27 97.3 67 08/21/17 00:00 66 08/20/17 23:12 65 18 99 Nasal Cannula 2.0 28 08/20/17 23:03 63 20 93 Room Air 08/20/17 20:25 97.2 63 16 110/54 100 Nasal Cannula 2.0 08/20/17 20:16 63 110/54 08/20/17 20:00 70 08/20/17 19:30 98 Nasal Cannula 2.0 28 08/20/17 19:30 Nasal Cannula 2.0 28 08/20/17 19:28 80 18 Nasal Cannula 2.0 28 08/20/17 16:00 69 08/20/17 15:42 97.3 77 20 101/45 99 Nasal Cannula 2.0 Intake and Output 08/21/17 08/22/17 19:00 07:00 Intake Total 250 ml Balance 250 ml Intake Oral 250 ml # Voids 2 # Bowel Movements 2 Height (Feet): 5 Height (Inches): 7.00 Weight (Pounds): 160 Respiratory/Chest: lungs clear Abdomen: soft Kaylyn Watt MD Aug 21, 2017 13:18
--- NOTE | 2017-08-21 14:58 | Pulmonology Progress Note ---
Assessment/Plan Problems: (1) COPD exacerbation (2) Hx of cancer of lung (3) Anemia (4) Parkinson disease Assessment/Plan still lots of rhonchi and sputum titrate fio2 check pulse oximeter on room air dvt prophylaxis Subjective ROS Limited/Unobtainable: No Interval Events: still short of breath Allergies: Coded Allergies: No Known Allergies (Unverified , 07/18/16) Objective Last 24 Hour Vital Signs Date Time Temp Pulse Resp B/P (MAP) Pulse Ox O2 Delivery O2 Flow Rate FiO2 08/21/17 11:49 98.1 73 20 105/55 99 Room Air 08/21/17 09:09 81 18 99 Nasal Cannula 2.0 28 08/21/17 09:00 75 20 94 Room Air 08/21/17 08:35 74 128/64 08/21/17 08:32 97.9 74 20 128/64 98 Room Air 08/21/17 07:13 85 18 Nasal Cannula 2.0 28 08/21/17 07:13 98 Nasal Cannula 2.0 28 08/21/17 07:13 Nasal Cannula 2.0 28 08/21/17 04:27 97.2 69 16 102/58 92 Nasal Cannula 08/21/17 04:00 70 08/21/17 00:28 97.3 67 20 108/72 67 08/21/17 00:27 97.3 67 08/21/17 00:00 66 08/20/17 23:12 65 18 99 Nasal Cannula 2.0 28 08/20/17 23:03 63 20 93 Room Air 08/20/17 20:25 97.2 63 16 110/54 100 Nasal Cannula 2.0 08/20/17 20:16 63 110/54 08/20/17 20:00 70 08/20/17 19:30 98 Nasal Cannula 2.0 28 08/20/17 19:30 Nasal Cannula 2.0 28 08/20/17 19:28 80 18 Nasal Cannula 2.0 28 08/20/17 16:00 69 08/20/17 15:42 97.3 77 20 101/45 99 Nasal Cannula 2.0 Intake and Output 08/21/17 08/22/17 19:00 07:00 Intake Total 490 ml Balance 490 ml Intake Oral 490 ml # Voids 2 # Bowel Movements 2 General Appearance: WD/WN HEENT: normocephalic, anicteric Respiratory/Chest: chest wall non-tender Cardiovascular: normal peripheral pulses, normal rate Abdomen: normal bowel sounds, soft, non tender Genitourinary: normal external genitalia Extremities: no cyanosis Neurologic/Psychiatric: marking machine tender II-XII grossly normal, abnormal gait Microbiology Date/Time Source Procedure Growth Status 08/19/17 18:10 Blood Blood Culture - Preliminary NO GROWTH AFTER 24 HOURS Resulted 08/19/17 17:45 Blood Blood Culture - Preliminary NO GROWTH AFTER 24 HOURS Resulted 08/20/17 18:50 Sputum Gram Stain - Final Resulted 08/20/17 18:50 Sputum Sputum Culture Pending Resulted 08/19/17 19:25 Sputum Gram Stain - Final Resulted 08/19/17 19:25 Sputum Sputum Culture - Preliminary Resulted Current Medications Medications (Trade) Dose Ordered Sig/Esther Route PRN Reason Start Time Stop Time Status Last Admin Dose Admin Acetaminophen (Tylenol) 650 mg Q4H PRN ORAL Mild Pain/Temp > 100.5 08/19/17 23:30 09/18/17 23:29 08/20/17 21:20 Albuterol/ Ipratropium (DuoNeb 0.5-3(2.5)mg/3ml) 3 ml Q4H PRN HHN Shortness of Breath 08/19/17 23:30 08/24/17 23:29 08/21/17 09:00 Atorvastatin Calcium (Lipitor) 10 mg DAILY ORAL 08/20/17 09:00 09/19/17 08:59 08/21/17 08:35 Carbidopa/Levodopa (Sinemet 25/100) 1 ea DAILY ORAL 08/20/17 09:00 09/19/17 08:59 08/21/17 08:35 Clopidogrel Bisulfate (Plavix) 75 mg DAILY ORAL 08/20/17 09:00 09/19/17 08:59 08/21/17 08:35 Meclizine HCl (Antivert) 25 mg Q8H PRN ORAL for dizziness 08/19/17 23:30 09/18/17 23:29 08/20/17 04:26 Metoprolol Tartrate (Lopressor) 25 mg Q12HR ORAL 08/20/17 09:00 09/19/17 08:59 08/21/17 08:35 Pantoprazole (Protonix) 40 mg DAILY ORAL 08/20/17 09:00 09/19/17 08:59 08/21/17 08:35 Promethazine HCl/ Codeine (Phenergan with Codeine) 5 ml Q4H PRN ORAL For Cough 08/20/17 11:45 09/19/17 11:44 Theophylline (Fish-Dur) 100 mg EVERY 12 HOURS ORAL 08/20/17 21:00 09/19/17 20:59 08/21/17 08:35 MACIE DALY Aug 21, 2017 14:58
[2017-08-21 15:31] VITALS: BP 121/73
[2017-08-21] MEDS: Solu-MEDROL 125mg Inj IVP SCH ×3 (15:52→23:48)
[2017-08-21] MEDS: Piperacillin/Tazobactam 3.375 GM in D5W 110 ML IVPB SCH ×2 (15:55→23:47)
--- NOTE | 2017-08-21 15:56 | Infectious Diseases Prog Note ---
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 , recommend hematology eval Subjective Constitutional: Reports: no symptoms HEENT: Reports: no symptoms Respiratory: Reports: productive cough, other - wheezing Breasts: Reports: no symptoms Cardiovascular: Reports: no symptoms Gastrointestinal/Abdominal: Reports: no symptoms Genitourinary: Reports: no symptoms Neurologic: Reports: no symptoms Psychiatric: Reports: no symptoms Skin: Reports: no symptoms Endocrine: Reports: no symptoms Hematologic: Reports: no symptoms Musculoskeletal: Reports: no symptoms Allergies: Coded Allergies: No Known Allergies (Unverified , 07/18/16) Objective Vital Signs Last 24 Hour Vital Signs Date Time Temp Pulse Resp B/P (MAP) Pulse Ox O2 Delivery O2 Flow Rate FiO2 08/21/17 15:31 98.3 69 20 121/73 99 Room Air 08/21/17 11:49 98.1 73 20 105/55 99 Room Air 08/21/17 09:09 81 18 99 Nasal Cannula 2.0 28 08/21/17 09:00 75 20 94 Room Air 08/21/17 08:35 74 128/64 08/21/17 08:32 97.9 74 20 128/64 98 Room Air 08/21/17 07:13 85 18 Nasal Cannula 2.0 08/21/17 07:13 98 Nasal Cannula 2.0 28 08/21/17 07:13 Nasal Cannula 2.0 28 08/21/17 04:27 97.2 69 16 102/58 92 Nasal Cannula 08/21/17 04:00 70 08/21/17 00:28 97.3 67 20 108/72 67 08/21/17 00:27 97.3 67 08/21/17 00:00 66 08/20/17 23:12 65 18 99 Nasal Cannula 2.0 28 08/20/17 23:03 63 20 93 Room Air 08/20/17 20:25 97.2 63 16 110/54 100 Nasal Cannula 2.0 08/20/17 20:16 63 110/54 08/20/17 20:00 70 08/20/17 19:30 98 Nasal Cannula 2.0 28 08/20/17 19:30 Nasal Cannula 2.0 28 08/20/17 19:28 80 18 Nasal Cannula 2.0 28 08/20/17 16:00 69 Height (Feet): 5 Height (Inches): 7.00 Weight (Pounds): 160 General Appearance: WD/WN, no acute distress HEENT: normocephalic, atraumatic, anicteric, mucous membranes moist, EOMI, pharynx normal, supple Respiratory/Chest: chest wall non-tender, no respiratory distress, no accessory muscle use, decreased breath sounds, crackles/rales Cardiovascular: normal peripheral pulses, normal rate, regular rhythm, no gallop/murmur, no JVD Abdomen: normal bowel sounds, soft, non tender, no organomegaly, non distended , no mass, no scars Extremities: no cyanosis, no clubbing Skin: no rash, no lesions, no ulcers Neurologic/Psychiatric: alert, oriented x 3 Lymphatic: no neck adenopathy, no groin adenopathy Musculoskeletal: normal muscle bulk Microbiology Date/Time Source Procedure Growth Status 08/19/17 18:10 Blood Blood Culture - Preliminary NO GROWTH AFTER 24 HOURS Resulted 08/19/17 17:45 Blood Blood Culture - Preliminary NO GROWTH AFTER 24 HOURS Resulted 08/20/17 18:50 Sputum Gram Stain - Final Resulted 08/20/17 18:50 Sputum Sputum Culture Pending Resulted 08/19/17 19:25 Sputum Gram Stain - Final Resulted 08/19/17 19:25 Sputum Sputum Culture - Preliminary Resulted Current Medications Medications (Trade) Dose Ordered Sig/Esther Route PRN Reason Start Time Stop Time Status Last Admin Dose Admin Acetaminophen (Tylenol) 650 mg Q4H PRN ORAL Mild Pain/Temp > 100.5 08/19/17 23:30 09/18/17 23:29 08/20/17 21:20 Albuterol/ Ipratropium (DuoNeb 0.5-3(2.5)mg/3ml) 3 ml Q4H PRN HHN Shortness of Breath 08/19/17 23:30 08/24/17 23:29 08/21/17 09:00 Atorvastatin Calcium (Lipitor) 10 mg DAILY ORAL 08/20/17 09:00 11/4/17 08:59 08/21/17 08:35 Carbidopa/Levodopa (Sinemet 25/100) 1 ea DAILY ORAL 08/20/17 09:00 09/19/17 08:59 08/21/17 08:35 Clopidogrel Bisulfate (Plavix) 75 mg DAILY ORAL 08/20/17 09:00 09/19/17 08:59 08/21/17 08:35 Meclizine HCl (Antivert) 25 mg Q8H PRN ORAL for dizziness 08/19/17 23:30 09/18/17 23:29 08/20/17 04:26 Methylprednisolone Sodium Succinate (Solu-MEDROL) 60 mg EVERY 6 HOURS IVP 08/21/17 15:00 09/20/17 14:59 Metoprolol Tartrate (Lopressor) 25 mg Q12HR ORAL 08/20/17 09:00 09/19/17 08:59 08/21/17 08:35 Pantoprazole (Protonix) 40 mg DAILY ORAL 08/20/17 09:00 09/19/17 08:59 08/21/17 08:35 Piperacillin Sod/ Tazobactam Sod 3.375 gm/Dextrose 110 ml @ 27.5 mls/hr Q8H IVPB 08/21/17 16:00 08/28/17 15:59 Promethazine HCl/ Codeine (Phenergan with Codeine) 5 ml Q4H PRN ORAL For Cough 08/20/17 11:45 09/19/17 11:44 Theophylline (Fish-Dur) 100 mg EVERY 12 HOURS ORAL 08/20/17 21:00 09/19/17 20:59 08/21/17 08:35 Ana Ann M.D. Aug 21, 2017 15:56
[2017-08-21 20:00] VITALS: BP 113/57
[2017-08-22] MEDS: Albuterol/Ipratropium 3ml neb HHN PRN ×4 (03:30→22:09)
[2017-08-22 04:00] VITALS: BP 102/67
[2017-08-22] MEDS: Solu-MEDROL 125mg Inj IVP SCH ×4 (06:39→23:33)
[2017-08-22 08:00] VITALS: BP 120/72
[2017-08-22] MEDS: Piperacillin/Tazobactam 3.375 GM in D5W 110 ML IVPB SCH ×3 (08:03→23:33)
[2017-08-22] MEDS: Sinemet 25/100 tab ORAL SCH (08:06)
[2017-08-22] MEDS: Metoprolol 25mg tab ORAL SCH ×2 (08:06→20:40)
[2017-08-22] MEDS: Theophylline ER 100mg ORAL SCH ×2 (08:07→20:39)
[2017-08-22 12:00] VITALS: BP 102/53
--- NOTE | 2017-08-22 15:42 | Infectious Diseases Prog Note ---
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 , recommend hematology eval Subjective Constitutional: Reports: no symptoms HEENT: Reports: no symptoms Respiratory: Reports: productive cough, other - wheezing Breasts: Reports: no symptoms Cardiovascular: Reports: no symptoms Gastrointestinal/Abdominal: Reports: no symptoms Genitourinary: Reports: no symptoms Neurologic: Reports: no symptoms Psychiatric: Reports: no symptoms Skin: Reports: no symptoms Endocrine: Reports: no symptoms Hematologic: Reports: no symptoms Allergies: Coded Allergies: No Known Allergies (Unverified , 07/18/16) Objective Vital Signs Last 24 Hour Vital Signs Date Time Temp Pulse Resp B/P (MAP) Pulse Ox O2 Delivery O2 Flow Rate FiO2 08/22/17 12:00 98.8 100 18 102/53 99 Room Air 08/22/17 11:50 100 20 100 Room Air 21 08/22/17 11:45 101 20 96 Room Air 21 08/22/17 08:30 103 20 100 Room Air 21 08/22/17 08:25 100 22 96 Room Air 21 08/22/17 08:25 Room Air 21 08/22/17 08:25 100 22 Room Air 21 08/22/17 08:25 96 Room Air 21 08/22/17 08:06 102 120/72 08/22/17 08:00 97.3 102 20 120/72 93 Room Air 08/22/17 04:00 97.8 90 18 102/67 94 Room Air 08/22/17 03:35 66 18 99 Room Air 08/22/17 03:30 91 18 92 Room Air 08/21/17 20:43 86 111/58 08/21/17 20:08 83 18 100 Nasal Cannula 2.0 28 08/21/17 20:06 Room Air 08/21/17 20:03 83 18 96 Room Air 08/21/17 20:00 97.4 61 18 113/57 95 Room Air 08/21/17 19:59 83 18 Room Air 08/21/17 19:57 95 Room Air 08/21/17 16:35 71 Height (Feet): 5 Height (Inches): 7.00 Weight (Pounds): 160 General Appearance: WD/WN, no acute distress HEENT: normocephalic, atraumatic, anicteric, mucous membranes moist, PERRL Respiratory/Chest: chest wall non-tender, no respiratory distress, no accessory muscle use, decreased breath sounds, expiratory wheezing Cardiovascular: normal peripheral pulses, normal rate, regular rhythm, no gallop/murmur, no JVD Abdomen: normal bowel sounds, soft, non tender, no organomegaly, non distended , no mass, no scars Extremities: no cyanosis, no clubbing Skin: no rash, no lesions, no ulcers Neurologic/Psychiatric: alert, oriented x 3 Microbiology Date/Time Source Procedure Growth Status 08/19/17 18:10 Blood Blood Culture - Preliminary NO GROWTH AFTER 48 HOURS Resulted 08/19/17 17:45 Blood Blood Culture - Preliminary NO GROWTH AFTER 48 HOURS Resulted 08/20/17 18:50 Sputum Gram Stain - Final Resulted 08/20/17 18:50 Sputum Sputum Culture - Preliminary NORMAL UPPER RESPIRATORY NIKO AT 24 ... Resulted 08/19/17 19:25 Sputum Gram Stain - Final Complete 08/19/17 19:25 Sputum Sputum Culture - Final NORMAL UPPER RESPIRATORY NIKO PRESENT Complete Current Medications Medications (Trade) Dose Ordered Sig/Esther Route PRN Reason Start Time Stop Time Status Last Admin Dose Admin Acetaminophen (Tylenol) 650 mg Q4H PRN ORAL Mild Pain/Temp > 100.5 08/19/17 23:30 09/18/17 23:29 08/20/17 21:20 Albuterol/ Ipratropium (DuoNeb 0.5-3(2.5)mg/3ml) 3 ml Q4H PRN HHN Shortness of Breath 08/19/17 23:30 08/24/17 23:29 08/22/17 11:44 Atorvastatin Calcium (Lipitor) 10 mg DAILY ORAL 08/20/17 09:00 09/19/17 08:59 08/22/17 08:04 Carbidopa/Levodopa (Sinemet 25/100) 1 ea DAILY ORAL 08/20/17 09:00 09/19/17 08:59 08/22/17 08:06 Clopidogrel Bisulfate (Plavix) 75 mg DAILY ORAL 08/20/17 09:00 09/19/17 08:59 08/22/17 08:07 Meclizine HCl (Antivert) 25 mg Q8H PRN ORAL for dizziness 08/19/17 23:30 09/18/17 23:29 08/20/17 04:26 Methylprednisolone Sodium Succinate (Solu-MEDROL) 60 mg EVERY 6 HOURS IVP 08/21/17 15:00 09/20/17 14:59 08/22/17 11:57 Metoprolol Tartrate (Lopressor) 25 mg Q12HR ORAL 08/20/17 09:00 09/19/17 08:59 08/22/17 08:06 Pantoprazole (Protonix) 40 mg DAILY ORAL 08/20/17 09:00 09/19/17 08:59 08/22/17 08:07 Piperacillin Sod/ Tazobactam Sod 3.375 gm/Dextrose 110 ml @ 27.5 mls/hr Q8H IVPB 08/21/17 16:00 08/28/17 15:59 08/22/17 08:03 Promethazine HCl/ Codeine (Phenergan with Codeine) 5 ml Q4H PRN ORAL For Cough 08/20/17 11:45 09/19/17 11:44 Theophylline (Fish-Dur) 100 mg EVERY 12 HOURS ORAL 08/20/17 21:00 09/19/17 20:59 08/22/17 08:07 Ana Ann M.D. Aug 22, 2017 15:42
[2017-08-22 16:00] VITALS: BP 116/63
--- NOTE | 2017-08-22 16:17 | Pulmonology Progress Note ---
Assessment/Plan Problems: (1) COPD exacerbation (2) Hx of cancer of lung (3) Anemia (4) Parkinson disease Assessment/Plan still lots of rhonchi and sputum titrate fio2 check pulse oximeter on room air dvt prophylaxis continue abx and steroids Subjective ROS Limited/Unobtainable: No Constitutional: Reports: fatigue Respiratory: Reports: productive cough, sputum Allergies: Coded Allergies: No Known Allergies (Unverified , 07/18/16) Objective Last 24 Hour Vital Signs Date Time Temp Pulse Resp B/P (MAP) Pulse Ox O2 Delivery O2 Flow Rate FiO2 08/22/17 12:00 98.8 100 18 102/53 99 Room Air 08/22/17 11:50 100 20 100 Room Air 21 08/22/17 11:45 101 20 96 Room Air 08/22/17 08:30 103 20 100 Room Air 21 08/22/17 08:25 100 22 96 Room Air 21 08/22/17 08:25 Room Air 21 08/22/17 08:25 100 22 Room Air 21 08/22/17 08:25 96 Room Air 21 08/22/17 08:06 102 120/72 08/22/17 08:00 97.3 102 20 120/72 93 Room Air 08/22/17 04:00 97.8 90 18 102/67 94 Room Air 08/22/17 03:35 66 18 99 Room Air 08/22/17 03:30 91 18 92 Room Air 08/21/17 20:43 86 111/58 08/21/17 20:08 83 18 100 Nasal Cannula 2.0 28 08/21/17 20:06 Room Air 08/21/17 20:03 83 18 96 Room Air 08/21/17 20:00 97.4 61 18 113/57 95 Room Air 08/21/17 19:59 83 18 Room Air 08/21/17 19:57 95 Room Air 08/21/17 16:35 71 Intake and Output 08/22/17 08/23/17 19:00 07:00 Intake Total 420 ml Balance 420 ml Intake Oral 420 ml # Voids 1 # Bowel Movements 1 General Appearance: WD/WN HEENT: normocephalic, atraumatic Respiratory/Chest: chest wall non-tender, decreased breath sounds, crackles/ rales Cardiovascular: normal peripheral pulses, normal rate Abdomen: normal bowel sounds, no organomegaly 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 Resulted 08/19/17 19:25 Sputum Gram Stain - Final Complete 08/19/17 19:25 Sputum Sputum Culture - Final NORMAL UPPER RESPIRATORY NIKO PRESENT Complete Current Medications Medications (Trade) Dose Ordered Sig/Esther Route PRN Reason Start Time Stop Time Status Last Admin Dose Admin Acetaminophen (Tylenol) 650 mg Q4H PRN ORAL Mild Pain/Temp > 100.5 08/19/17 23:30 09/18/17 23:29 08/20/17 21:20 Albuterol/ Ipratropium (DuoNeb 0.5-3(2.5)mg/3ml) 3 ml Q4H PRN HHN Shortness of Breath 08/19/17 23:30 08/24/17 23:29 08/22/17 11:44 Atorvastatin Calcium (Lipitor) 10 mg DAILY ORAL 08/20/17 09:00 09/19/17 08:59 08/22/17 08:04 Carbidopa/Levodopa (Sinemet 25/100) 1 ea DAILY ORAL 08/20/17 09:00 09/19/17 08:59 08/22/17 08:06 Clopidogrel Bisulfate (Plavix) 75 mg DAILY ORAL 08/20/17 09:00 09/19/17 08:59 08/22/17 08:07 Meclizine HCl (Antivert) 25 mg Q8H PRN ORAL for dizziness 08/19/17 23:30 09/18/17 23:29 08/20/17 04:26 Methylprednisolone Sodium Succinate (Solu-MEDROL) 60 mg EVERY 6 HOURS IVP 08/21/17 15:00 09/20/17 14:59 08/22/17 11:57 Metoprolol Tartrate (Lopressor) 25 mg Q12HR ORAL 08/20/17 09:00 09/19/17 08:59 08/22/17 08:06 Pantoprazole (Protonix) 40 mg DAILY ORAL 08/20/17 09:00 09/19/17 08:59 08/22/17 08:07 Piperacillin Sod/ Tazobactam Sod 3.375 gm/Dextrose 110 ml @ 27.5 mls/hr Q8H IVPB 08/21/17 16:00 08/28/17 15:59 08/22/17 08:03 Promethazine HCl/ Codeine (Phenergan with Codeine) 5 ml Q4H PRN ORAL For Cough 08/20/17 11:45 09/19/17 11:44 Theophylline (Fish-Dur) 100 mg EVERY 12 HOURS ORAL 08/20/17 21:00 09/19/17 20:59 08/22/17 08:07 MACIE DALY Aug 22, 2017 16:17
[2017-08-22] MEDS: Promethazine/Codeine 5ml UD ORAL PRN (16:18)
[2017-08-22 20:02] VITALS: BP 123/67
[2017-08-23 00:20] VITALS: BP 125/71
[2017-08-23 04:48] VITALS: BP 104/57
[2017-08-23] MEDS: Solu-MEDROL 125mg Inj IVP SCH ×5 (05:32→23:15)
[2017-08-23] MEDS: Piperacillin/Tazobactam 3.375 GM in D5W 110 ML IVPB SCH ×3 (05:32→23:02)
[2017-08-23] MEDS: Albuterol/Ipratropium 3ml neb HHN PRN ×3 (07:34→23:17)
[2017-08-23 08:00] VITALS: BP 130/65
[2017-08-23] MEDS: Sinemet 25/100 tab ORAL SCH (08:02)
[2017-08-23] MEDS: Metoprolol 25mg tab ORAL SCH ×2 (08:02→21:01)
[2017-08-23] MEDS: Theophylline ER 100mg ORAL SCH ×2 (08:03→21:00)
[2017-08-23 12:00] VITALS: BP 122/68
--- NOTE | 2017-08-23 13:33 | Infectious Diseases Prog Note ---
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 , recommend hematology eval Subjective Constitutional: Reports: no symptoms HEENT: Reports: no symptoms Respiratory: Reports: dry cough, other - wheezing Breasts: Reports: no symptoms Cardiovascular: Reports: no symptoms Gastrointestinal/Abdominal: Reports: no symptoms Genitourinary: Reports: no symptoms Neurologic: Reports: no symptoms Psychiatric: Reports: no symptoms Skin: Reports: no symptoms Endocrine: Reports: no symptoms Hematologic: Reports: no symptoms Musculoskeletal: Reports: no symptoms Allergies: Coded Allergies: No Known Allergies (Unverified , 07/18/16) Objective Vital Signs Last 24 Hour Vital Signs Date Time Temp Pulse Resp B/P (MAP) Pulse Ox O2 Delivery O2 Flow Rate FiO2 08/23/17 13:10 88 20 98 Room Air 08/23/17 13:10 82 20 93 Room Air 08/23/17 12:00 97.6 86 20 122/68 95 Room Air 08/23/17 08:02 90 130/65 08/23/17 08:00 97.3 90 19 130/65 95 Room Air 08/23/17 07:35 97 Room Air 08/23/17 07:35 88 20 97 Room Air 08/23/17 07:35 Room Air 08/23/17 07:35 88 20 98 Room Air 21 08/23/17 07:34 88 20 Room Air 21 08/23/17 04:48 97.6 83 18 104/57 96 Room Air 08/23/17 00:20 98.1 106 20 125/71 98 Room Air 08/22/17 22:19 92 20 99 Room Air 08/22/17 22:11 81 20 98 Room Air 08/22/17 20:40 99 123/67 08/22/17 20:02 97.7 99 19 123/67 92 Room Air 08/22/17 19:15 98 Room Air 21 08/22/17 19:15 Room Air 21 08/22/17 19:15 105 20 Room Air 21 08/22/17 16:00 97.7 105 20 116/63 95 Room Air Height (Feet): 5 Height (Inches): 7.00 Weight (Pounds): 160 General Appearance: WD/WN, no acute distress HEENT: normocephalic, atraumatic, anicteric, mucous membranes moist, PERRL, EOMI, pharynx normal, supple, no JVD Respiratory/Chest: chest wall non-tender, no respiratory distress, no accessory muscle use, decreased breath sounds, crackles/rales, expiratory wheezing Cardiovascular: normal peripheral pulses, normal rate, regular rhythm, no gallop/murmur, no JVD Abdomen: normal bowel sounds, soft, non tender, no organomegaly, non distended , no mass, no scars Extremities: no cyanosis, no clubbing Skin: no rash, no lesions, no ulcers Microbiology Date/Time Source Procedure Growth Status 08/20/17 18:50 Sputum Gram Stain - Final Complete 08/20/17 18:50 Sputum Sputum Culture - Final NORMAL UPPER RESPIRATORY NIKO PRESENT Complete Current Medications Medications (Trade) Dose Ordered Sig/Esther Route PRN Reason Start Time Stop Time Status Last Admin Dose Admin Acetaminophen (Tylenol) 650 mg Q4H PRN ORAL Mild Pain/Temp > 100.5 08/19/17 23:30 09/18/17 23:29 08/20/17 21:20 Albuterol/ Ipratropium (DuoNeb 0.5-3(2.5)mg/3ml) 3 ml Q4H PRN HHN Shortness of Breath 08/19/17 23:30 08/24/17 23:29 08/23/17 13:10 Atorvastatin Calcium (Lipitor) 10 mg DAILY ORAL 08/20/17 09:00 09/19/17 08:59 08/23/17 08:02 Carbidopa/Levodopa (Sinemet 25/100) 1 ea DAILY ORAL 08/20/17 09:00 09/19/17 08:59 08/23/17 08:02 Clopidogrel Bisulfate (Plavix) 75 mg DAILY ORAL 08/20/17 09:00 09/19/17 08:59 08/23/17 08:02 Meclizine HCl (Antivert) 25 mg Q8H PRN ORAL for dizziness 08/19/17 23:30 09/18/17 23:29 08/20/17 04:26 Methylprednisolone Sodium Succinate (Solu-MEDROL) 60 mg EVERY 6 HOURS IVP 08/21/17 15:00 09/20/17 14:59 08/23/17 12:21 Metoprolol Tartrate (Lopressor) 25 mg Q12HR ORAL 08/20/17 09:00 09/19/17 08:59 08/23/17 08:02 Pantoprazole (Protonix) 40 mg DAILY ORAL 08/20/17 09:00 09/19/17 08:59 08/23/17 08:02 Piperacillin Sod/ Tazobactam Sod 3.375 gm/Dextrose 110 ml @ 27.5 mls/hr Q8H IVPB 08/21/17 16:00 08/28/17 15:59 08/23/17 05:32 Promethazine HCl/ Codeine (Phenergan with Codeine) 5 ml Q4H PRN ORAL For Cough 08/20/17 11:45 09/19/17 11:44 08/22/17 16:18 Theophylline (Fish-Dur) 100 mg EVERY 12 HOURS ORAL 08/20/17 21:00 09/19/17 20:59 08/23/17 08:03 Ana Ann M.D. Aug 23, 2017 13:33
[2017-08-23 15:59] VITALS: BP 110/60
[2017-08-23 20:00] VITALS: BP 112/64
[2017-08-24] VITALS: BP 112/64
[2017-08-24] MEDS: Promethazine/Codeine 5ml UD ORAL PRN (00:44)
[2017-08-24 04:00] VITALS: BP 122/64
[2017-08-24] MEDS: Solu-MEDROL 125mg Inj IVP SCH ×3 (05:29→18:20)
[2017-08-24] MEDS: Albuterol/Ipratropium 3ml neb HHN PRN ×2 (06:30→13:15)
[2017-08-24 08:00] VITALS: BP 131/67
[2017-08-24] MEDS: Theophylline ER 100mg ORAL SCH ×2 (09:58→21:01)
[2017-08-24] MEDS: Piperacillin/Tazobactam 3.375 GM in D5W 110 ML IVPB SCH ×2 (09:58→16:12)
[2017-08-24] MEDS: Metoprolol 25mg tab ORAL SCH ×2 (09:59→21:01)
[2017-08-24] MEDS: Sinemet 25/100 tab ORAL SCH (09:59)
[2017-08-24 12:00] VITALS: BP 103/71
--- NOTE | 2017-08-24 15:25 | Pulmonology Progress Note ---
Assessment/Plan Problems: (1) COPD exacerbation (2) Hx of cancer of lung (3) Anemia (4) Parkinson disease Assessment/Plan still lots of rhonchi and sputum titrate fio2 check pulse oximeter on room air dvt prophylaxis continue abx and taper steroids Subjective ROS Limited/Unobtainable: No Constitutional: Reports: no symptoms HEENT: Repors: no symptoms Respiratory: Reports: no symptoms Allergies: Coded Allergies: No Known Allergies (Unverified , 07/18/16) Objective Last 24 Hour Vital Signs Date Time Temp Pulse Resp B/P (MAP) Pulse Ox O2 Delivery O2 Flow Rate FiO2 08/24/17 13:16 83 16 100 Room Air 21 08/24/17 13:10 85 20 100 Room Air 21 08/24/17 12:00 96.2 77 19 103/71 98 Room Air 08/24/17 09:59 131 67/102 08/24/17 08:00 96.4 102 20 131/67 97 Room Air 08/24/17 06:38 82 20 100 Room Air 21 08/24/17 06:35 81 20 96 Room Air 21 08/24/17 06:31 Room Air 21 08/24/17 06:31 80 20 Room Air 21 08/24/17 06:31 96 Room Air 21 08/24/17 04:00 97.9 67 18 122/64 95 Room Air 08/23/17 23:18 81 16 92 Room Air 21 08/23/17 21:01 85 112/64 08/23/17 20:00 98.4 85 18 112/64 94 Room Air 08/23/17 19:59 Room Air 21 08/23/17 19:59 98 Room Air 21 08/23/17 19:59 81 20 Room Air 21 08/23/17 15:59 97.7 82 18 110/60 94 Room Air Intake and Output 08/24/17 08/25/17 19:00 07:00 Intake Total 460.0 ml Balance 460.0 ml Intake Oral 350 ml IV Total 110.0 ml # Voids 1 General Appearance: cachetic HEENT: normocephalic, atraumatic Respiratory/Chest: chest wall non-tender, decreased breath sounds, accessory muscle use Cardiovascular: normal peripheral pulses, normal rate Abdomen: normal bowel sounds, soft, non tender, no organomegaly Extremities: no cyanosis Skin: no rash Neurologic/Psychiatric: 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 Current Medications Medications (Trade) Dose Ordered Sig/Esther Route PRN Reason Start Time Stop Time Status Last Admin Dose Admin Acetaminophen (Tylenol) 650 mg Q4H PRN ORAL Mild Pain/Temp > 100.5 08/19/17 23:30 09/18/17 23:29 08/20/17 21:20 Albuterol/ Ipratropium (DuoNeb 0.5-3(2.5)mg/3ml) 3 ml Q4H PRN HHN Shortness of Breath 08/19/17 23:30 08/24/17 23:29 08/24/17 13:15 Atorvastatin Calcium (Lipitor) 10 mg DAILY ORAL 08/20/17 09:00 09/19/17 08:59 08/24/17 09:59 Carbidopa/Levodopa (Sinemet 25/100) 1 ea DAILY ORAL 08/20/17 09:00 09/19/17 08:59 08/24/17 09:59 Clopidogrel Bisulfate (Plavix) 75 mg DAILY ORAL 08/20/17 09:00 09/19/17 08:59 08/24/17 09:58 Meclizine HCl (Antivert) 25 mg Q8H PRN ORAL for dizziness 08/19/17 23:30 09/18/17 23:29 08/20/17 04:26 Methylprednisolone Sodium Succinate (Solu-MEDROL) 60 mg EVERY 6 HOURS IVP 08/21/17 15:00 09/20/17 14:59 08/24/17 12:39 Metoprolol Tartrate (Lopressor) 25 mg Q12HR ORAL 08/20/17 09:00 09/19/17 08:59 08/24/17 09:59 Pantoprazole (Protonix) 40 mg DAILY ORAL 08/20/17 09:00 09/19/17 08:59 08/24/17 09:58 Piperacillin Sod/ Tazobactam Sod 3.375 gm/Dextrose 110 ml @ 27.5 mls/hr Q8H IVPB 08/21/17 16:00 08/28/17 15:59 08/24/17 09:58 Promethazine HCl/ Codeine (Phenergan with Codeine) 5 ml Q4H PRN ORAL For Cough 08/20/17 11:45 09/19/17 11:44 10/7/17 16:18 Theophylline (Fish-Dur) 100 mg EVERY 12 HOURS ORAL 08/20/17 21:00 09/19/17 20:59 08/24/17 09:58 MACIE DALY Aug 24, 2017 15:25
--- NOTE | 2017-08-24 15:28 | Pulmonology Progress Note ---
Assessment/Plan Problems: (1) COPD exacerbation (2) Hx of cancer of lung (3) Anemia (4) Parkinson disease Assessment/Plan slightly better lots of cough titrate fio2 check pulse oximeter on room air dvt prophylaxis continue abx and taper steroids Subjective Interval Events: late note for 08/23 still coughing Allergies: Coded Allergies: No Known Allergies (Unverified , 07/18/16) Objective Last 24 Hour Vital Signs Date Time Temp Pulse Resp B/P (MAP) Pulse Ox O2 Delivery O2 Flow Rate FiO2 08/24/17 13:16 83 16 100 Room Air 21 08/24/17 13:10 85 20 100 Room Air 21 08/24/17 12:00 96.2 77 19 103/71 98 Room Air 08/24/17 09:59 131 67/102 08/24/17 08:00 96.4 102 20 131/67 97 Room Air 08/24/17 06:38 82 20 100 Room Air 21 08/24/17 06:35 81 20 96 Room Air 21 08/24/17 06:31 Room Air 21 08/24/17 06:31 80 20 Room Air 21 08/24/17 06:31 96 Room Air 21 08/24/17 04:00 97.9 67 18 122/64 95 Room Air 08/23/17 23:18 81 16 92 Room Air 21 08/23/17 21:01 85 112/64 08/23/17 20:00 98.4 85 18 112/64 94 Room Air 08/23/17 19:59 Room Air 21 08/23/17 19:59 98 Room Air 21 08/23/17 19:59 81 20 Room Air 21 08/23/17 15:59 97.7 82 18 110/60 94 Room Air Intake and Output 08/24/17 08/25/17 19:00 07:00 Intake Total 460.0 ml Balance 460.0 ml Intake Oral 350 ml IV Total 110.0 ml # Voids 1 General Appearance: WD/WN HEENT: normocephalic, atraumatic Respiratory/Chest: chest wall non-tender, lungs clear Cardiovascular: normal peripheral pulses, normal rate Abdomen: normal bowel sounds, soft, non tender Extremities: no cyanosis, no clubbing Skin: no lesions Lymphatic: no neck adenopathy Current Medications Medications (Trade) Dose Ordered Sig/Esther Route PRN Reason Start Time Stop Time Status Last Admin Dose Admin Acetaminophen (Tylenol) 650 mg Q4H PRN ORAL Mild Pain/Temp > 100.5 08/19/17 23:30 09/18/17 23:29 08/20/17 21:20 Albuterol/ Ipratropium (DuoNeb 0.5-3(2.5)mg/3ml) 3 ml Q4H PRN HHN Shortness of Breath 08/19/17 23:30 08/24/17 23:29 08/24/17 13:15 Atorvastatin Calcium (Lipitor) 10 mg DAILY ORAL 08/20/17 09:00 09/19/17 08:59 08/24/17 09:59 Carbidopa/Levodopa (Sinemet 25/100) 1 ea DAILY ORAL 08/20/17 09:00 09/19/17 08:59 08/24/17 09:59 Clopidogrel Bisulfate (Plavix) 75 mg DAILY ORAL 08/20/17 09:00 09/19/17 08:59 08/24/17 09:58 Meclizine HCl (Antivert) 25 mg Q8H PRN ORAL for dizziness 08/19/17 23:30 09/18/17 23:29 08/20/17 04:26 Methylprednisolone Sodium Succinate (Solu-MEDROL) 60 mg EVERY 6 HOURS IVP 08/21/17 15:00 09/20/17 14:59 08/24/17 12:39 Metoprolol Tartrate (Lopressor) 25 mg Q12HR ORAL 08/20/17 09:00 09/19/17 08:59 08/24/17 09:59 Pantoprazole (Protonix) 40 mg DAILY ORAL 08/20/17 09:00 09/19/17 08:59 08/24/17 09:58 Piperacillin Sod/ Tazobactam Sod 3.375 gm/Dextrose 110 ml @ 27.5 mls/hr Q8H IVPB 08/21/17 16:00 08/28/17 15:59 08/24/17 09:58 Promethazine HCl/ Codeine (Phenergan with Codeine) 5 ml Q4H PRN ORAL For Cough 08/20/17 11:45 09/19/17 11:44 08/22/17 16:18 Theophylline (Fish-Dur) 100 mg EVERY 12 HOURS ORAL 08/20/17 21:00 11/4/17 20:59 08/24/17 09:58 MACIE DLAY Aug 24, 2017 15:28
[2017-08-24 16:00] VITALS: BP 126/64
--- NOTE | 2017-08-24 16:17 | Infectious Diseases Prog Note ---
Assessment/Plan Problems: (1) COPD exacerbation Assessment & Plan: not improving much, may need steroids, on zosyn empirically , may switch to levaquin , since CT chest didn't show infiltration or consolidation , continue inhalers, and oxygen therapy. 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 , recommend hematology eval Subjective Constitutional: Reports: no symptoms HEENT: Reports: no symptoms Respiratory: Reports: productive cough, other - wheezing Breasts: Reports: no symptoms Cardiovascular: Reports: no symptoms Gastrointestinal/Abdominal: Reports: no symptoms Genitourinary: Reports: no symptoms Neurologic: Reports: no symptoms Psychiatric: Reports: no symptoms Skin: Reports: no symptoms Endocrine: Reports: no symptoms Allergies: Coded Allergies: No Known Allergies (Unverified , 07/18/16) Objective Vital Signs Last 24 Hour Vital Signs Date Time Temp Pulse Resp B/P (MAP) Pulse Ox O2 Delivery O2 Flow Rate FiO2 08/24/17 13:16 83 16 100 Room Air 08/24/17 13:10 85 20 100 Room Air 08/24/17 12:00 96.2 77 19 103/71 98 Room Air 08/24/17 09:59 131 67/102 08/24/17 08:00 96.4 102 20 131/67 97 Room Air 08/24/17 06:38 82 20 100 Room Air 08/24/17 06:35 81 20 96 Room Air 08/24/17 06:31 Room Air 21 08/24/17 06:31 80 20 Room Air 08/24/17 06:31 96 Room Air 21 08/24/17 04:00 97.9 67 18 122/64 95 Room Air 08/23/17 23:18 81 16 92 Room Air 08/23/17 21:01 85 112/64 08/23/17 20:00 98.4 85 18 112/64 94 Room Air 08/23/17 19:59 Room Air 21 08/23/17 19:59 98 Room Air 21 08/23/17 19:59 81 20 Room Air 21 Height (Feet): 5 Height (Inches): 7.00 Weight (Pounds): 160 General Appearance: WD/WN, no acute distress HEENT: normocephalic, atraumatic, anicteric, mucous membranes moist Respiratory/Chest: chest wall non-tender, no respiratory distress, no accessory muscle use, decreased breath sounds, expiratory wheezing Cardiovascular: normal peripheral pulses, normal rate, regular rhythm, no gallop/murmur, no JVD Abdomen: normal bowel sounds, soft, non tender, no organomegaly, non distended , no mass, no scars Genitourinary: normal external genitalia Extremities: no cyanosis, no clubbing Skin: no rash, no lesions Neurologic/Psychiatric: alert, oriented x 3 Current Medications Medications (Trade) Dose Ordered Sig/Esther Route PRN Reason Start Time Stop Time Status Last Admin Dose Admin Acetaminophen (Tylenol) 650 mg Q4H PRN ORAL Mild Pain/Temp > 100.5 08/19/17 23:30 09/18/17 23:29 08/20/17 21:20 Albuterol/ Ipratropium (DuoNeb 0.5-3(2.5)mg/3ml) 3 ml Q4H PRN HHN Shortness of Breath 08/19/17 23:30 08/24/17 23:29 08/24/17 13:15 Atorvastatin Calcium (Lipitor) 10 mg DAILY ORAL 08/20/17 09:00 09/19/17 08:59 08/24/17 09:59 Carbidopa/Levodopa (Sinemet 25/100) 1 ea DAILY ORAL 08/20/17 09:00 09/19/17 08:59 08/24/17 09:59 Clopidogrel Bisulfate (Plavix) 75 mg DAILY ORAL 08/20/17 09:00 09/19/17 08:59 08/24/17 09:58 Meclizine HCl (Antivert) 25 mg Q8H PRN ORAL for dizziness 08/19/17 23:30 09/18/17 23:29 08/20/17 04:26 Methylprednisolone Sodium Succinate (Solu-MEDROL) 60 mg EVERY 6 HOURS IVP 08/21/17 15:00 09/20/17 14:59 08/24/17 12:39 Metoprolol Tartrate (Lopressor) 25 mg Q12HR ORAL 08/20/17 09:00 09/19/17 08:59 08/24/17 09:59 Pantoprazole (Protonix) 40 mg DAILY ORAL 08/20/17 09:00 09/19/17 08:59 08/24/17 09:58 Piperacillin Sod/ Tazobactam Sod 3.375 gm/Dextrose 110 ml @ 27.5 mls/hr Q8H IVPB 08/21/17 16:00 08/28/17 15:59 08/24/17 09:58 Promethazine HCl/ Codeine (Phenergan with Codeine) 5 ml Q4H PRN ORAL For Cough 08/20/17 11:45 09/19/17 11:44 08/22/17 16:18 Theophylline (Fish-Dur) 100 mg EVERY 12 HOURS ORAL 08/20/17 21:00 09/19/17 20:59 08/24/17 09:58 Ana Ann M.D. Aug 24, 2017 16:17
--- NOTE | 2017-08-24 17:24 | Physician Query ---
PLEASE COMPLETE THE FORM BEFORE SIGNING* Dear Dr. MACIE PEARCE Date 2016 [facility] NISHA Chambers [facility] Phone #: [phone] Exercise your independent professional judgment when responding to query. Questions asked do not imply particular answer is desired or expected. We greatly appreciate your clarification on this issue. Clinical Documentation States: "Patient is 77-year-old male presented after increased difficulty breathing. Patient prior history of COPD as well as lung cancer. He reports having gradually worsening difficulty breathing" documented in the ED Provider's notes. Clinical Findings Show: RR:_22,18,20, 22 Short of Breath ( Tachypnea) On Nasal Cannula upon admission. Please clarify if the patient had any of the following conditions based on the above clinical findings: [x]Respiratory Failure [] Acute [] Chronic (on home O2) [x]Acute on Chronic [] Acute Respiratory Distress [] Acute Respiratory Insufficiency [] Respiratory failure due to trauma [] Respiratory insufficiency due to trauma [] Unable to determine [] Other: Condition Present on Admission: [] Yes [] No []Clinically Undeterminable Please also document in your Progress Notes and/or Discharge Summary and indicate if the condition was present on admission. Macie Pearce MD Date/Time [facility]
--- NOTE | 2017-08-24 20:41 | General Progress Note ---
Assessment/Plan Problem List: (1) COPD exacerbation ICD Codes: J44.1 - Chronic obstructive pulmonary disease with (acute) exacerbation SNOMED: 535069967, 615267391 (2) Parkinson disease ICD Codes: G20 - Parkinson's disease SNOMED: 22264566 (3) Hx of cancer of lung ICD Codes: Z85.118 - Personal history of other malignant neoplasm of bronchus and lung SNOMED: 176870887, 415691186 Status: progressing Assessment/Plan dc home once oxygen is obtained needs home oxygen copd exac improving Subjective ROS Limited/Unobtainable: Yes Constitutional: Reports: no symptoms Allergies: Coded Allergies: No Known Allergies (Unverified , 07/18/16) Objective Last 24 Hour Vital Signs Date Time Temp Pulse Resp B/P (MAP) Pulse Ox O2 Delivery O2 Flow Rate FiO2 08/24/17 16:00 97.2 93 18 126/64 97 Room Air 08/24/17 13:16 83 16 100 Room Air 08/24/17 13:10 85 20 100 Room Air 08/24/17 12:00 96.2 77 19 103/71 98 Room Air 08/24/17 09:59 131 67/102 08/24/17 08:00 96.4 102 20 131/67 97 Room Air 08/24/17 06:38 82 20 100 Room Air 08/24/17 06:35 81 20 96 Room Air 21 08/24/17 06:31 Room Air 21 08/24/17 06:31 80 20 Room Air 21 08/24/17 06:31 96 Room Air 21 08/24/17 04:00 97.9 67 18 122/64 95 Room Air 08/23/17 23:18 81 16 92 Room Air 08/23/17 21:01 85 112/64 Intake and Output 08/24/17 08/25/17 19:00 07:00 Intake Total 842.5 ml Balance 842.5 ml Intake Oral 650 ml IV Total 192.5 ml # Voids 2 Height (Feet): 5 Height (Inches): 7.00 Weight (Pounds): 160 EENT: PERRL/EOMI Cardiovascular: normal rate Respiratory/Chest: lungs clear Kaylyn Watt MD Aug 24, 2017 20:41
[2017-08-24 20:46] VITALS: BP 121/64
[2017-08-25] MEDS: Piperacillin/Tazobactam 3.375 GM in D5W 110 ML IVPB SCH ×2 (00:25→08:58)
[2017-08-25] MEDS: Solu-MEDROL 125mg Inj IVP SCH ×5 (00:28→23:28)
[2017-08-25 00:56] VITALS: BP 124/71
[2017-08-25 04:00] VITALS: BP 123/66
[2017-08-25 08:47] VITALS: BP 134/68
[2017-08-25] MEDS: Sinemet 25/100 tab ORAL SCH (08:49)
[2017-08-25] MEDS: Metoprolol 25mg tab ORAL SCH ×2 (08:50→20:52)
[2017-08-25] MEDS: Theophylline ER 100mg ORAL SCH ×2 (08:50→20:52)
[2017-08-25 11:55] VITALS: BP 120/70
--- NOTE | 2017-08-25 15:40 | Infectious Diseases Prog Note ---
Assessment/Plan Problems: (1) COPD exacerbation Assessment & Plan: improving , continue steroids, and switch zosyn to levaquin , since CT chest didn't show infiltration or consolidation , continue inhalers, and oxygen therapy. 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 , recommend hematology eval Subjective Constitutional: Reports: no symptoms HEENT: Reports: no symptoms Respiratory: Reports: dry cough, other - wheezing Cardiovascular: Reports: no symptoms Gastrointestinal/Abdominal: Reports: no symptoms Genitourinary: Reports: no symptoms Neurologic: Reports: no symptoms Psychiatric: Reports: no symptoms Skin: Reports: no symptoms Endocrine: Reports: no symptoms Hematologic: Reports: no symptoms Musculoskeletal: Reports: no symptoms Allergies: Coded Allergies: No Known Allergies (Unverified , 07/18/16) Objective Vital Signs Last 24 Hour Vital Signs Date Time Temp Pulse Resp B/P (MAP) Pulse Ox O2 Delivery O2 Flow Rate FiO2 08/25/17 11:55 97.2 71 20 120/70 98 Nasal Cannula 2.0 08/25/17 08:50 86 136/68 08/25/17 08:47 98.2 86 20 134/68 88 Nasal Cannula 3.0 08/25/17 08:21 95 Room Air 08/25/17 08:21 Room Air 08/25/17 08:20 82 18 Room Air 21 08/25/17 04:00 97.9 85 19 123/66 94 Room Air 08/25/17 03:17 97 Room Air 08/25/17 00:56 97.4 69 18 124/71 98 Room Air 08/24/17 21:01 86 121/64 08/24/17 20:46 97.4 86 20 121/64 98 Room Air 08/24/17 20:00 Room Air 21 08/24/17 20:00 85 Room Air 21 08/24/17 20:00 85 18 Room Air 21 08/24/17 16:00 97.2 93 18 126/64 97 Room Air Height (Feet): 5 Height (Inches): 7.00 Weight (Pounds): 160 General Appearance: WD/WN, no acute distress HEENT: normocephalic, atraumatic, anicteric, mucous membranes moist Respiratory/Chest: chest wall non-tender, lungs clear, normal breath sounds, no respiratory distress, no accessory muscle use Cardiovascular: normal peripheral pulses, normal rate, regular rhythm, no gallop/murmur, no JVD Abdomen: normal bowel sounds, soft, non tender, no organomegaly, non distended , no mass, no scars Extremities: no cyanosis, no clubbing Skin: no rash, no lesions, no ulcers Neurologic/Psychiatric: alert, oriented x 3 Current Medications Medications (Trade) Dose Ordered Sig/Esther Route PRN Reason Start Time Stop Time Status Last Admin Dose Admin Acetaminophen (Tylenol) 650 mg Q4H PRN ORAL Mild Pain/Temp > 100.5 08/19/17 23:30 09/18/17 23:29 08/20/17 21:20 Albuterol/ Ipratropium (DuoNeb 0.5-3(2.5)mg/3ml) 3 ml Q4H PRN HHN Shortness of Breath 08/25/17 14:15 08/30/17 14:14 Atorvastatin Calcium (Lipitor) 10 mg DAILY ORAL 08/20/17 09:00 09/19/17 08:59 08/25/17 08:49 Carbidopa/Levodopa (Sinemet 25/100) 1 ea DAILY ORAL 08/20/17 09:00 09/19/17 08:59 08/25/17 08:49 Clopidogrel Bisulfate (Plavix) 75 mg DAILY ORAL 08/20/17 09:00 09/19/17 08:59 08/25/17 08:50 Meclizine HCl (Antivert) 25 mg Q8H PRN ORAL for dizziness 08/19/17 23:30 09/18/17 23:29 08/20/17 04:26 Methylprednisolone Sodium Succinate (Solu-MEDROL) 60 mg EVERY 6 HOURS IVP 08/21/17 15:00 09/20/17 14:59 08/25/17 12:27 Metoprolol Tartrate (Lopressor) 25 mg Q12HR ORAL 08/20/17 09:00 09/19/17 08:59 08/25/17 08:50 Pantoprazole (Protonix) 40 mg DAILY ORAL 08/20/17 09:00 09/19/17 08:59 08/25/17 08:50 Piperacillin Sod/ Tazobactam Sod 3.375 gm/Dextrose 110 ml @ 27.5 mls/hr Q8H IVPB 08/21/17 16:00 08/28/17 15:59 08/25/17 08:58 Promethazine HCl/ Codeine (Phenergan with Codeine) 5 ml Q4H PRN ORAL For Cough 08/20/17 11:45 09/19/17 11:44 08/22/17 16:18 Theophylline (Fish-Dur) 100 mg EVERY 12 HOURS ORAL 08/20/17 21:00 09/19/17 20:59 08/25/17 08:50 Ana Ann M.D. Aug 25, 2017 15:40
[2017-08-25 15:42] VITALS: BP 125/71
[2017-08-25] MEDS: Levofloxacin 500mg tab ORAL SCH (16:15)
--- NOTE | 2017-08-25 18:09 | Pulmonology Progress Note ---
Assessment/Plan Problems: (1) COPD exacerbation (2) Hx of cancer of lung (3) Anemia (4) Parkinson disease Assessment/Plan slightly better lots of cough titrate fio2 check pulse oximeter on room air dvt prophylaxis dc home with home o2 and oxygen taper, prescription given Subjective ROS Limited/Unobtainable: No Constitutional: Reports: no symptoms HEENT: Repors: no symptoms Respiratory: Reports: no symptoms Allergies: Coded Allergies: No Known Allergies (Unverified , 07/18/16) Objective Last 24 Hour Vital Signs Date Time Temp Pulse Resp B/P (MAP) Pulse Ox O2 Delivery O2 Flow Rate FiO2 08/25/17 15:42 97.3 71 18 125/71 95 Room Air 08/25/17 11:55 97.2 71 20 120/70 98 Nasal Cannula 2.0 08/25/17 08:50 86 136/68 08/25/17 08:47 98.2 86 20 134/68 88 Nasal Cannula 3.0 08/25/17 08:21 95 Room Air 08/25/17 08:21 Room Air 08/25/17 08:20 82 18 Room Air 21 08/25/17 04:00 97.9 85 19 123/66 94 Room Air 08/25/17 03:17 97 Room Air 21 08/25/17 00:56 97.4 69 18 124/71 98 Room Air 08/24/17 21:01 86 121/64 08/24/17 20:46 97.4 86 20 121/64 98 Room Air 08/24/17 20:00 Room Air 21 08/24/17 20:00 85 Room Air 21 08/24/17 20:00 85 18 Room Air 21 Intake and Output 08/25/17 08/26/17 19:00 07:00 Intake Total 480 ml Balance 480 ml Intake Oral 480 ml # Voids 2 # Bowel Movements 1 General Appearance: WD/WN HEENT: normocephalic, atraumatic Respiratory/Chest: chest wall non-tender, lungs clear Cardiovascular: normal peripheral pulses, normal rate Abdomen: normal bowel sounds, soft, non tender Genitourinary: normal external genitalia Extremities: no cyanosis 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 Current Medications Medications (Trade) Dose Ordered Sig/Esther Route PRN Reason Start Time Stop Time Status Last Admin Dose Admin Acetaminophen (Tylenol) 650 mg Q4H PRN ORAL Mild Pain/Temp > 100.5 08/19/17 23:30 09/18/17 23:29 08/20/17 21:20 Albuterol/ Ipratropium (DuoNeb 0.5-3(2.5)mg/3ml) 3 ml Q4H PRN HHN Shortness of Breath 08/25/17 14:15 08/30/17 14:14 Atorvastatin Calcium (Lipitor) 10 mg DAILY ORAL 08/20/17 09:00 09/19/17 08:59 08/25/17 08:49 Carbidopa/Levodopa (Sinemet 25/100) 1 ea DAILY ORAL 08/20/17 09:00 09/19/17 08:59 08/25/17 08:49 Clopidogrel Bisulfate (Plavix) 75 mg DAILY ORAL 08/20/17 09:00 09/19/17 08:59 08/25/17 08:50 Levofloxacin (Levaquin) 500 mg DAILY ORAL 08/25/17 16:00 09/01/17 15:59 08/25/17 16:15 Meclizine HCl (Antivert) 25 mg Q8H PRN ORAL for dizziness 08/19/17 23:30 09/18/17 23:29 08/20/17 04:26 Methylprednisolone Sodium Succinate (Solu-MEDROL) 60 mg EVERY 6 HOURS IVP 08/21/17 15:00 09/20/17 14:59 08/25/17 17:13 Metoprolol Tartrate (Lopressor) 25 mg Q12HR ORAL 08/20/17 09:00 09/19/17 08:59 08/25/17 08:50 Pantoprazole (Protonix) 40 mg DAILY ORAL 08/20/17 09:00 09/19/17 08:59 08/25/17 08:50 Promethazine HCl/ Codeine (Phenergan with Codeine) 5 ml Q4H PRN ORAL For Cough 08/20/17 11:45 09/19/17 11:44 08/22/17 16:18 Theophylline (Fish-Dur) 100 mg EVERY 12 HOURS ORAL 08/20/17 21:00 09/19/17 20:59 08/25/17 08:50 MACIE DALY Aug 25, 2017 18:09
[2017-08-25 20:00] VITALS: BP 122/74
--- NOTE | 2017-08-25 20:55 | General Progress Note ---
Assessment/Plan Problem List: (1) COPD exacerbation ICD Codes: J44.1 - Chronic obstructive pulmonary disease with (acute) exacerbation SNOMED: 006311303, 040015384 (2) Parkinson disease ICD Codes: G20 - Parkinson's disease SNOMED: 10751763 (3) Hx of cancer of lung ICD Codes: Z85.118 - Personal history of other malignant neoplasm of bronchus and lung SNOMED: 464015904, 306877611 Status: progressing Assessment/Plan afebrile no wheezing needs home oxygen copd exac improving Subjective ROS Limited/Unobtainable: Yes Allergies: Coded Allergies: No Known Allergies (Unverified , 07/18/16) Objective Last 24 Hour Vital Signs Date Time Temp Pulse Resp B/P (MAP) Pulse Ox O2 Delivery O2 Flow Rate FiO2 08/25/17 20:52 74 122/70 08/25/17 15:42 97.3 71 18 125/71 95 Room Air 08/25/17 11:55 97.2 71 20 120/70 98 Nasal Cannula 2.0 08/25/17 08:50 86 136/68 08/25/17 08:47 98.2 86 20 134/68 88 Nasal Cannula 3.0 08/25/17 08:21 95 Room Air 08/25/17 08:21 Room Air 08/25/17 08:20 82 18 Room Air 21 08/25/17 04:00 97.9 85 19 123/66 94 Room Air 08/25/17 03:17 97 Room Air 21 08/25/17 00:56 97.4 69 18 124/71 98 Room Air 08/24/17 21:01 86 121/64 Intake and Output 08/25/17 08/26/17 19:00 07:00 Intake Total 830 ml Balance 830 ml Intake Oral 830 ml # Voids 2 # Bowel Movements 1 Height (Feet): 5 Height (Inches): 7.00 Weight (Pounds): 160 Cardiovascular: normal rate Abdomen: soft Kaylyn Watt MD Aug 25, 2017 20:55
[2017-08-25] MEDS: Albuterol/Ipratropium 3ml neb HHN PRN (22:06)
[2017-08-26] VITALS: BP 127/71
[2017-08-26 04:00] VITALS: BP 118/72
[2017-08-26] MEDS: Albuterol/Ipratropium 3ml neb HHN PRN (04:59)
[2017-08-26] MEDS: Solu-MEDROL 125mg Inj IVP SCH ×2 (05:26→12:12)
[2017-08-26 08:00] VITALS: BP 118/62
[2017-08-26] MEDS: Levofloxacin 500mg tab ORAL SCH (08:39)
[2017-08-26] MEDS: Theophylline ER 100mg ORAL SCH (08:39)
[2017-08-26] MEDS: Sinemet 25/100 tab ORAL SCH (08:40)
[2017-08-26] MEDS: Metoprolol 25mg tab ORAL SCH (08:41)
[2017-08-26 09:03] VITALS: BP 118/62
[2017-08-26] MEDS ORDERED: LEVOFLOXACIN500 MG ORAL (10:10)
[2017-08-26] MEDS ORDERED: PREDNISONE5 M4 PO (10:30)
[2017-08-26] MEDS ORDERED: PREDNISONE20 M1 PO (10:31)
[2017-08-26] MEDS ORDERED: PREDNISONE20 MG ORAL (10:34)
[2017-08-26 12:00] VITALS: BP 121/71
[2017-08-26] MEDS ORDERED: NS 275ml ONE (14:09)
--- NOTE | 2017-08-26 18:13 | Infectious Diseases Prog Note ---
Assessment/Plan Problems: (1) COPD exacerbation Assessment & Plan: improving , continue steroids, and levaquin , since CT chest didn't show infiltration or consolidation , continue inhalers, and oxygen therapy. 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 , recommend hematology eval Subjective Constitutional: Reports: no symptoms HEENT: Reports: no symptoms Respiratory: Reports: no symptoms Breasts: Reports: no symptoms Cardiovascular: Reports: no symptoms Gastrointestinal/Abdominal: Reports: no symptoms Genitourinary: Reports: no symptoms Neurologic: Reports: no symptoms Psychiatric: Reports: no symptoms Skin: Reports: no symptoms Endocrine: Reports: no symptoms Hematologic: Reports: no symptoms Allergies: Coded Allergies: No Known Allergies (Unverified , 07/18/16) Objective Vital Signs Last 24 Hour Vital Signs Date Time Temp Pulse Resp B/P (MAP) Pulse Ox O2 Delivery O2 Flow Rate FiO2 08/26/17 12:00 98.0 75 20 121/71 98 Room Air 08/26/17 08:41 93 118/62 08/26/17 08:15 96 Nasal Cannula 2.0 08/26/17 08:15 Nasal Cannula 2.0 28 08/26/17 08:15 75 18 Nasal Cannula 2.0 28 08/26/17 08:00 97.7 93 19 118/62 96 Room Air 08/26/17 05:18 82 18 100 Nasal Cannula 2.0 08/26/17 05:00 87 18 97 Nasal Cannula 2.0 08/26/17 04:00 97.6 60 20 118/72 94 Nasal Cannula 2.0 08/26/17 00:00 97.9 80 20 127/71 94 Nasal Cannula 2.0 08/25/17 22:11 73 18 100 Nasal Cannula 2.0 28 08/25/17 22:00 71 18 97 Nasal Cannula 2.0 28 08/25/17 20:52 74 122/70 08/25/17 20:00 97.5 74 20 122/74 95 Nasal Cannula 2.0 08/25/17 19:00 Nasal Cannula 2.0 28 08/25/17 19:00 97 Nasal Cannula 2.0 28 08/25/17 19:00 71 18 Nasal Cannula 2.0 28 Height (Feet): 5 Height (Inches): 7.00 Weight (Pounds): 160 General Appearance: WD/WN, no acute distress HEENT: normocephalic, atraumatic, anicteric, mucous membranes moist, PERRL, EOMI, pharynx normal, no JVD Respiratory/Chest: chest wall non-tender, lungs clear, normal breath sounds, no respiratory distress, no accessory muscle use Cardiovascular: normal peripheral pulses, normal rate, regular rhythm, no gallop/murmur, no JVD Abdomen: normal bowel sounds, soft, non tender, no organomegaly, non distended , no mass, no scars Genitourinary: normal external genitalia Extremities: no cyanosis, no clubbing Skin: no rash, no lesions Neurologic/Psychiatric: alert, oriented x 3, responsive Ana Ann M.D. Aug 26, 2017 18:13
--- NOTE | 2017-08-26 19:00 | Pulmonology Progress Note ---
Assessment/Plan Problems: (1) COPD exacerbation (2) Hx of cancer of lung (3) Anemia (4) Parkinson disease Assessment/Plan slightly better lots of cough titrate fio2 check pulse oximeter on room air dvt prophylaxis dc home with home o2 and oxygen taper, prescription given Subjective ROS Limited/Unobtainable: No Constitutional: Reports: fatigue Respiratory: Reports: productive cough, sputum, shortness of breath, wheezing Neurologic: Reports: weakness Musculoskeletal: Reports: pain, stiffness Allergies: Coded Allergies: No Known Allergies (Unverified , 07/18/16) Objective Last 24 Hour Vital Signs Date Time Temp Pulse Resp B/P (MAP) Pulse Ox O2 Delivery O2 Flow Rate FiO2 08/26/17 12:00 98.0 75 20 121/71 98 Room Air 08/26/17 08:41 93 118/62 08/26/17 08:15 96 Nasal Cannula 2.0 28 08/26/17 08:15 Nasal Cannula 2.0 28 08/26/17 08:15 75 18 Nasal Cannula 2.0 28 08/26/17 08:00 97.7 93 19 118/62 96 Room Air 08/26/17 05:18 82 18 100 Nasal Cannula 2.0 28 08/26/17 05:00 87 18 97 Nasal Cannula 2.0 28 08/26/17 04:00 97.6 60 20 118/72 94 Nasal Cannula 2.0 08/26/17 00:00 97.9 80 20 127/71 94 Nasal Cannula 2.0 08/25/17 22:11 73 18 100 Nasal Cannula 2.0 28 08/25/17 22:00 71 18 97 Nasal Cannula 2.0 28 08/25/17 20:52 74 122/70 08/25/17 20:00 97.5 74 20 122/74 95 Nasal Cannula 2.0 08/25/17 19:00 Nasal Cannula 2.0 28 08/25/17 19:00 97 Nasal Cannula 2.0 28 08/25/17 19:00 71 18 Nasal Cannula 2.0 28 General Appearance: no acute distress HEENT: normocephalic, atraumatic, PERRL Respiratory/Chest: chest wall non-tender, decreased breath sounds, accessory muscle use, rhonchi, expiratory wheezing, inspiratory wheezing Cardiovascular: normal peripheral pulses, normal rate, regular rhythm, no JVD Abdomen: normal bowel sounds, soft, non tender, no organomegaly, non distended Genitourinary: normal external genitalia Extremities: no cyanosis Skin: no rash 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
--- NOTE | 2017-08-27 23:19 | Cardiology Report ---
APPROVED REPORT EKG Measurement Heart [id number] Normal sinus rhythm Low voltage QRS Septal infarct, age undetermined Abnormal ECG
--- NOTE | 2017-09-03 10:02 | Discharge Summary ---
Discharge Summary Hospital Course Date of Admission Aug 19, 2017 at 18:06 Date of Discharge Aug 26, 2017 at 14:10 Admitting Diagnosis COPD EXACEBRATION HPI Albino Brown is a 77 year old male who was admitted on Aug 19, 2017 at 18:06 for Chronic Obstructive Pulmonary Disorder [facility] Hospital Course [id number] Discharge Discharge Disposition Patient was discharged to Home Discharge Diagnoses: Isela Martinez NP Sep 03, 2017 10:02
--- NOTE | 2017-09-03 23:31 | Discharge Summary 2 SIG ---
DATE OF ADMISSION: 08/19/2017 DATE OF DISCHARGE: 08/26/2017 CONSULTANTS: 1. Von Pearce M.D. 2. Ana Ann M.D. BRIEF HOSPITAL COURSE: The patient is a 77-year-old male, who had a history of left lung resection, came into the ED due to increased difficulty breathing. On arrival to ED, he was on 100% nonrebreather mask. He was given Solu-Medrol and breathing treatment with improvement. The chest x-ray done showed density at the right lung base with middle lobe atelectasis. EKG was in normal sinus rhythm without acute ST to T-wave changes. He was admitted for COPD exacerbation and was given respiratory treatments and was started on Zithromax empirically. The patient was having lots of rhonchi and was given Solu-Medrol and theophylline. He was continued on his regular medications. He was given SCDs for DVT prophylaxis. The patient was not improving much despite being on steroids and Zosyn. CT scan of the chest was done, showed no evidence of malignancy, with right anterior volume loss due to partial middle lobe resection. He had a venous duplex scan of the lower extremity that showed a recanalized chronic thrombus on the left leg. There was no evidence of acute DVT. He was discharged home with home O2. FINAL DIAGNOSES: 1. Acute respiratory failure. 2. Acute chronic obstructive pulmonary disease exacerbation. 3. Prior history of lung cancer. 4. Anemia. 5. Parkinson disease. 6. Left leg chronic deep vein thrombosis. DISCHARGE DISPOSITION: The patient was discharged home. DISCHARGE MEDICATIONS: Refer to medication list. The patient to continue levofloxacin 500 mg by mouth x3 more days with tapering prednisone dosage. Kaylyn Watt M.D. I have been assigned to dictate discharge summary on this account and I was not involved in the patient's management. Isela Martinez N.P. DR: ARLYN JOB#: [id number] CC: [facility]
== END 2017-08-26 14:10 | disposition home or self-care (01) | DRG 190 ==
LOC: EMR 18:03 → 2E 18:06 → EDBEDREQ 18:48 → 2E 20:35 → 3E 08-21 16:36 → 4W 08-25 10:44
DX: J44.1 Chronic obstructive pulmonary disease with (acute) exacerbation (principal); J96.00 Acute respiratory failure, unspecified whether with hypoxia or hypercapnia; I82.512 Chronic embolism and thrombosis of left femoral vein; G20 Parkinson's disease; D64.9 Anemia, unspecified; I25.10 Atherosclerotic heart disease of native coronary artery without angina pectoris; Z85.118 Personal history of other malignant neoplasm of bronchus and lung
CPT/HCPCS: 36415; 71010; 71260; 80048; 80053; 81003; 82378; 83605; 83880; 84484; 85025; 87040; 87070; 87205; 93005; 93970; 94640; 94664; 94760; 99285; J7620